=== PATIENT | male | born 1970 | race Caucasian/White ===

== ENCOUNTER 2020-04-21 16:26 | Inpatient (IN) | payer OTHER ==
--- OUTSIDE RECORDS SUMMARY | 2020-04-21 16:32 | XMS ---
:1970 Author Organization [facility] Support Name Relationship Address Phone UE Unavailable Unavailable Unavailable OLENA SIGNIFICANT OTHER - [address] [place] [address] Re-disclosure Warning The records that you are about to access may contain information from federally- assisted alcohol or drug abuse programs. If such information is present, then the following federally mandated warning applies: This information has been disclosed to you from records protected by federal confidentiality rules (42 CFR part 2). The federal rules prohibit you from making any further disclosure of this information unless further disclosure is expressly permitted by the written consent of the person to whom it pertains or as otherwise permitted by 42 CFR part 2. A general authorization for the release of medical or other information is NOT sufficient for this purpose. The Federal rules restrict any use of the information to criminally investigate or prosecute any alcohol or drug abuse patient.The records that you are about to access may contain highly sensitive health information, the redisclosure of which is protected by Article 27-F of the [facility] Public Health law. If you continue you may haveaccess to information: Regarding HIV / AIDS; Provided by facilities licensed or operated by the [facility] Office of Mental Health; or Provided by the [facility] Office for People With Developmental Disabilities. If such information is present, then the following [facility] mandated warning applies: This information has been disclosed to you from confidential records which are protected by state law. State law prohibits you from making any further disclosure of this information without the specific written consent of the person to whom it pertains, or as otherwise permitted by law. Any unauthorized further disclosure in violation of state law may result in a fine or custodial sentence or both. A general authorization for the release of medical or other information is NOT sufficient authorization for further disclosure. Insurance Providers Payer name Policy type Policy ID Covered Covered constitution party's Policy P serene / Coverage constitution party ID relationship to [place] [employer] ormation type [place] BEACON [id number] [facility]
--- NOTE | 2020-04-21 16:49 | BHS.RME ---
Substance Use & Tx History - Substance Use History Alcohol Substance amount: 3 pints whiskey Frequency of use: Daily Substance route: Oral Date of Last Use: 04/18/20 (started age 43) Physical/Psych/Mental Status - Behavior General Behavior: Increased activity (restlessness, agitation) Eye Contact: Normal - Cooperativeness Cooperativeness: Cooperative - Thinking Thought Processes: Tight, Logical, Goal Directed - Physical Health Problems Is patient presently having any pain?: No Does patient presently have any injuries (include location): No Does patient currently have a fever: No Is patient : No CIWA Nausea/Vomitin-Int. Nausea w/Dry Heave Muscle Tremors: 4-Moderate,w/Arms Extend Anxiety: 3 Agitation: 3 Paroxysmal Sweats: 4-Forehead w/Sweat Beads Orientation: 0-Oriented Tacttile Disturbances: 0-None Auditory Disturbances: 0-None Visual Disturbances: 0-None Headache: 0-None Present CIWA-Ar Total Score: 18
[2020-04-21 17:37] VITALS: BMI 19.1
--- NOTE | 2020-04-21 17:44 | HP ---
CIWA Score Nausea/Vomitin-Int. Nausea w/Dry Heave Muscle Tremors: 4-Moderate,w/Arms Extend Anxiety: 3 Agitation: 1-Slight > Activity Paroxysmal Sweats: 4-Forehead w/Sweat Beads Orientation: 0-Oriented Tacttile Disturbances: 0-None Auditory Disturbances: 0-None Visual Disturbances: 0-None Headache: 3-Moderate CIWA-Ar Total Score: 19 - Admission Criteria OASAS Guidelines: Admission for Medically Managed Detox: Requires at least one of the followin. CIWA greater than 12 2. Seizures within the past 24 hours 3. Delirium tremens within the past 24 hours 4. Hallucinations within the past 24 hours 5. Acute intervention needed for co occurring medical disorder 6. Acute intervention needed for co occurring psychiatric disorder 7. Severe withdrawal that cannot be handled at a lower level of care (continued vomiting, continued diarrhea, abnormal vital signs) requiring intravenous medication and/or fluids 8. Patient presents the following: CIWA greater than 12 Admission Criteria Met: Admission criteria met Admitting History and Physical - Admission Chief Complaint: Pt is a 49 yo M presenting for detox from alcohol; "want to fix myself...I don't want to drink anymore." History of Present Illness: Pt is a 49 yo M presenting for detox from alcohol; "want to fix myself...I don't want to drink anymore." This is the pt's first time at [facility]. Pt was at [facility] earlier today for withdrawal symptoms; was given 2 doses of librium and referred to [facility]. Pt reports he tried to "quit alcohol" on his own on Monday and he developed withdrawal symptoms afterwards (pt reports he blacked out and seizure yesterday). Pt has never been to detox before. Pt reports drinking wasn't heavy before but since the COVID19 pandemic he has been home and the anxiety of paying rent and feeling depressed has led him to drink heavily. PMH - HTN (metoprolol), HLD (lipitor), GERD (famotidine) , COPD (emphysema) PSH - none Psych - none Soc/Domiciled - Live in [place] alone Legal - none - Substance Use History Alcohol Substance amount: 3 bottles of whiskey (approx. 1 L each) Frequency of use: Daily Substance route: Oral Date of Last Use: 04/18/20 Pt is former smoker (quite 3 months ago) - Past Medical History Cardiovascular: Yes: HTN, Hyperlipdemia Pulmonary: Yes: COPD Gastrointestinal: Yes: GERD Admission ROS [facility] - Ebola screening Have you traveled outside of the country in the last 21 days: No Have you been sick,other than usual withdrawal symptoms: No Do you have a fever: No - Review of Systems Constitutional: Diaphoresis EENT: reports: Blurred Vision (farsighted with glasses), Throat Pain (throat pain x 3 weeks) Respiratory: reports: Cough (chronic cough from COPD), Shortness of Breath (intermittent SOB with COPD hx) Cardiac: reports: No Symptoms Reported GI: reports: Nausea (dry heaving; vomited this morning), Other (reflux, burning sensation in epigastrium) : reports: No Symptoms Reported Musculoskeletal: reports: Back Pain (chronic lower back pain (herniated disc in lumbar spine, per pt)) Integumentary: reports: No Symptoms Reported Neuro: reports: Headache (moderate headache), Tremors (moderate with arms extended), Weakness (generalized) Endocrine: reports: No Symptoms Reported Hematology: reports: No Symptoms Reported Psychiatric: reports: Agitated (restlesss, moderate), Anxious (moderate), Depressed (sometimes (no SI/HI), no SAs previously) Patient History - Smoking Cessation Smoking history: Former smoker Have you smoked in the past 12 months: Yes Initiated information on smoking cessation: No Admission Physical Exam [facility] - Vital Signs Vital Signs: BP 150/97 HR 85 RR 16 T 98.0 O2 sat 100% - Physical General Appearance: Yes: No Apparent Distress, Nourished, Appropriately Dressed HEENTM: Yes: EOMI, Hearing grossly Normal, Normocephalic, Normal Voice Respiratory: Yes: Lungs Clear, Normal Breath Sounds, No Respiratory Distress, No Accessory Muscle Use Neck: Yes: Supple, Trachea in good position Breast: Yes: Breast Exam Deferred Cardiology: Yes: Regular Rhythm, Regular Rate Abdominal: Yes: Normal Bowel Sounds, Non Tender, Flat, Soft Genitourinary: Yes: Other (deferred) Back: Yes: Normal Inspection Musculoskeletal: Yes: full range of Motion, Other (pt with mild unsteadiness of gait 2/2 to feeling generally week) Extremities: Yes: Normal Inspection, Normal Range of Motion, Non-Tender, Tremors (moderate with outstretched arms) Neurological: Yes: Fully Oriented, Alert, Motor Strength 5/5 Integumentary: Yes: Normal Color, Dry, Warm - Diagnostic (1) Alcohol dependence Current Visit: Yes Status: Acute Qualifiers: Substance use status: in withdrawal Complication of substance-induced condition: uncomplicated Qualified Code(s): F10.230 - Alcohol dependence with withdrawal, uncomplicated (2) HTN (hypertension) Current Visit: Yes Status: Chronic Qualifiers: Hypertension type: unspecified Qualified Code(s): I10 - Essential (primary) hypertension (3) Hyperlipidemia Current Visit: Yes Status: Chronic Qualifiers: Hyperlipidemia type: unspecified Qualified Code(s): E78.5 - Hyperlipidemia, unspecified (4) GERD (gastroesophageal reflux disease) Current Visit: No Status: Chronic Qualifiers: Esophagitis presence: esophagitis presence not specified Qualified Code(s): K21.9 - Gastro-esophageal reflux disease without esophagitis (5) COPD (chronic obstructive pulmonary disease) Current Visit: No Status: Chronic Qualifiers: COPD type: unspecified COPD Qualified Code(s): J44.9 - Chronic obstructive pulmonary disease, unspecified Cleared for Admission S - Detox or Rehab [facility] Level of Care: Medically Managed Detox Regimen/Protocol: Librium Breathalyzer - Breathalyzer Breathalyzer: 0 Urine Drug Screen - Test Device Lot number: [id number] Expiration date: 10/15/21 - Control Is test valid?: Yes - Results Drug screen NEGATIVE: No Urine drug screen results: THC-Marijuana, BZO-Benzodiazepines Inpatient Rehab Admission - Rehab Decision to Admit Inpatient rehab admission?: No
[2020-04-21] MEDS ORDERED: MENTHOL/PHENOL 1 EACH UD MM PRN (18:10)
[2020-04-21] MEDS ORDERED: ACETAMINOPHEN 325 MG TABLET (FP) PO PRN ×2 (18:10)
[2020-04-21] MEDS ORDERED: ONDANSETRON *ODT* 4 MG TABLET SL PRN (18:10)
[2020-04-21] MEDS ORDERED: METHOCARBAMOL 500 MG TABLET PO PRN (18:10)
[2020-04-21] MEDS ORDERED: MAG HYDROX/AL HYDROX/SIMETH 30 ML UNIT-DOSE CUP PO PRN (18:10)
[2020-04-21] MEDS ORDERED: MAGNESIUM HYDROX 2400MG/30ML ORAL SUSPENSION 30 ML CUP PO PRN (18:10)
[2020-04-21] MEDS ORDERED: chlordiazePOXIDE HCL 25 MG CAPSULE PO PRN (18:10)
[2020-04-21] MEDS ORDERED: MAGNESIUM CITRATE 300 ML BOTTLE PO PRN (18:10)
[2020-04-21] MEDS ORDERED: BISMUTH SUBSALICYLATE 524 MG/30 ML UD PO PRN (18:10)
[2020-04-21] MEDS ORDERED: IBUPROFEN 400 MG TABLET (FP) PO PRN (18:10)
--- NOTE | 2020-04-21 18:21 | PN ---
Teaching Attending Note Name of Resident: Cierra Nicole ATTENDING PHYSICIAN STATEMENT I saw and evaluated the patient. I reviewed the resident's note and discussed the case with the resident. I agree with the resident's findings and plan as documented. SUBJECTIVE: 49 y.o. male w/ etoh use referred from [facility] for alcohol detox OBJECTIVE: wnwd , tremulous UE Vital Signs - 24 hr 04/21/20 17:34 Temperature 98.2 F Pulse Rate 85 Respiratory 18 Rate Blood Pressure 150/97 ASSESSMENT AND PLAN: AUD - Librium detox .
--- OUTSIDE RECORDS SUMMARY | 2020-04-21 19:06 | XMS ---
:1970 Author Organization [facility] Support Name Relationship Address Phone UE Unavailable Unavailable Unavailable CHRIST HYATT SIGNIFICANT OTHER - [address] [place] [address] Re-disclosure Warning The records that you are [...] is protected by Article 27-F of the [facility] Public Health law. If you continue you may haveaccess to information: Regarding HIV / AIDS; Provided by facilities licensed or operated by the [facility] Office of Mental Health; or Provided by the [facility] Office for People With Developmental Disabilities. If such information is present, then the following [facility] mandated warning applies: This information [...] law may result in a fine or mcfp sentence or both. A general authorization for the release of medical or other information is NOT sufficient authorization for further disclosure. Insurance Providers Payer name Policy type Policy ID Covered Covered libertarian's Policy P serene / Coverage libertarian ID relationship to [place] Inf ormation type [place] [employer]ACON [id number] [facility]
[2020-04-21] MEDS: chlordiazePOXIDE HCL 25 MG CAPSULE PO SCH ×2 (20:29→22:23)
[2020-04-21] MEDS: ATORVASTATIN CA 20 MG TABLET (FP) PO SCH (22:21)
[2020-04-21] MEDS: hydrOXYzine PAMOATE 25 MG CAPSULE (FP) PO SCH (22:21)
[2020-04-21] MEDS: GABAPENTIN 300 MG CAPSULE PO SCH (22:21)
[2020-04-21] MEDS: MELATONIN 5 MG TABLETS PO SCH (22:21)
[2020-04-21] MEDS: THIAMINE HCL 100 MG TABLET (FP) PO SCH (22:23)
[2020-04-22] MEDS: hydrOXYzine PAMOATE 25 MG CAPSULE (FP) PO SCH ×5 (05:35→22:35)
[2020-04-22] MEDS: chlordiazePOXIDE HCL 25 MG CAPSULE PO SCH ×4 (05:36→22:34)
[2020-04-22] MEDS: PRENATAL VITAMINS W/ FOLIC ACID TABLET (FP) PO SCH (10:35)
[2020-04-22] MEDS: BUDESONIDE/FORMETEROL FUMARATE 160/4.5 mcg INHALER IH SCH ×2 (10:35→22:33)
[2020-04-22] MEDS: metoPROLOL SUCCINATE 25 MG TAB.SR.24H (FP) PO SCH (10:35)
[2020-04-22] MEDS: NICOTINE 7 MG/24 HOURS TOPICAL PATCH TD SCH (10:36)
--- NOTE | 2020-04-22 11:18 | PN ---
S CIWA - CIWA Score Nausea/Vomitin-Mild Nausea/No Vomiting Muscle Tremors: 4-Moderate,w/Arms Extend Anxiety: 3 Agitation: 2 Paroxysmal Sweats: 1-Minimal Palms Moist Orientation: 0-Oriented Tacttile Disturbances: 0-None Auditory Disturbances: 0-None Visual Disturbances: 1-Very Mild Sensitivity Headache: 2-Mild CIWA-Ar Total Score: 14 BHS Progress Note (SOAP) Subjective: 49 years old male was admitted on 04/21/20 for alcohol withdrawal sx management treating with librium detox regiment bmi 19.1 ensure 120 ml po tid with meals long history of bp elevation received first metoprolol dosage today ambulating with wheelchair due to "I shake" too much least tremor today able to walk from bed to bathroom Objective: 04/22/20 11:19 Vital Signs - 24 hr 04/21/20 04/21/20 04/21/20 17:34 19:21 20:03 Temperature 98.2 F 97.7 F Pulse Rate 85 90 Respiratory 18 18 Rate Blood Pressure 150/97 144/84 O2 Sat by Pulse 100 100 Oximetry (%) 04/21/20 04/22/20 04/22/20 21:04 06:31 08:59 Temperature 97.5 F L 96.7 F L 96.9 F L Pulse Rate 80 59 L 78 Respiratory 17 16 18 Rate Blood Pressure 125/85 156/84 138/83 O2 Sat by Pulse 100 100 100 Oximetry (%) 04/22/20 11:20 lab pending Assessment: 04/22/20 11:20 alcohol withdrawal Plan: librium regiment
[2020-04-22 12:56] LABS: ALBUMIN 3.3 g/dl (3.4-5.0); BILIRUBIN,TOTAL 1.4 mg/dL (0.2-1); BLOOD UREA NITROGEN 7.9 mg/dL (7-18); CALCIUM 8.9 mg/dL (8.5-10.1); CREATININE 0.6 mg/dL (0.55-1.3); TOT PROT 6.3 g/dl (6.4-8.2)
[2020-04-22 12:59] LABS: HEMATOCRIT 35.6 % (35.4-49); HEMOGLOBIN 11.3 GM/dL (11.7-16.9); MCH 26.6 pg (25.7-33.7); MCHC 31.8 g/dl (32.0-35.9); MEAN CELL VOLUME 83.8 fl (80-96); MEAN PLT VOLUME 10.5 fl (7.5-11.1); PLATELET COUNT 92 K/MM3 (134-434); RBC 4.25 M/mm3 (4.00-5.60); RDW 14.8 % (11.9-15.9); WHITE BLOOD COUNT 4.7 K/mm3 (4.0-10.0)
[2020-04-22] MEDS: NICOTINE POLACRILEX 2 MG GUM BUC PRN (18:32)
[2020-04-22] MEDS: THIAMINE HCL 100 MG TABLET (FP) PO SCH (22:34)
[2020-04-22] MEDS: ATORVASTATIN CA 20 MG TABLET (FP) PO SCH (22:35)
[2020-04-22] MEDS: GABAPENTIN 300 MG CAPSULE PO SCH (22:35)
[2020-04-22] MEDS: MELATONIN 5 MG TABLETS PO SCH (22:35)
[2020-04-23] MEDS: chlordiazePOXIDE HCL 25 MG CAPSULE PO SCH ×2 (05:42→14:09)
[2020-04-23] MEDS: hydrOXYzine PAMOATE 25 MG CAPSULE (FP) PO SCH ×5 (05:42→22:14)
--- NOTE | 2020-04-23 06:52 | PN ---
[facility] Progress Note Note: I was called by the nurse to evaluate patient who reported to the nurse that he fell twice this morning, once in the bathroom and at the bedside and that he hit the left side of his head and left hand/ shoulder to the floor. He is complaining of pain to the left side of his head and to the left hand / shoulder. He is wheelchair bound and reports that he bilateral leg is weak. He denies loss of consciousness, nausea, vomiting and reports left sided head pain, left hand pain and dizziness. No injury noted on examination. Fall was not witnessed by a staff. Fall protocol #1 initiated. Patient is to be transferred to ER for further evaluation and head CT scan. patient endorsed to Dr. Ortega Vital Signs Temperature 97.6 F 04/23/20 06:18 Pulse Rate 59 L 04/23/20 06:18 Respiratory Rate 18 04/23/20 06:18 Blood Pressure 106/63 04/23/20 06:18 O2 Sat by Pulse Oximetry (%) 96 04/23/20 06:18 Laboratory Last Values WBC 4.7 K/mm3 (4.0-10.0) 04/21/20 07:30 RBC 4.25 M/mm3 (4.00-5.60) 04/21/20 07:30 Hgb 11.3 GM/dL (11.7-16.9) L 04/21/20 07:30 Hct 35.6 % (35.4-49) 04/21/20 07:30 MCV 83.8 fl (80-96) 04/21/20 07:30 MCH 26.6 pg (25.7-33.7) 04/21/20 07:30 MCHC 31.8 g/dl (32.0-35.9) L 04/21/20 07:30 RDW 14.8 % (11.9-15.9) 04/21/20 07:30 Plt Count 92 K/MM3 (134-434) L 04/21/20 07:30 MPV 10.5 fl (7.5-11.1) 04/21/20 07:30 Sodium 140 mmol/L (136-145) 04/21/20 07:30 Potassium 3.0 mmol/L (3.5-5.1) L 04/21/20 07:30 Chloride 101 mmol/L (98-107) 04/21/20 07:30 Carbon Dioxide 32 mmol/L (21-32) 04/21/20 07:30 Anion Gap 7 MMOL/L (8-16) L 04/21/20 07:30 BUN 7.9 mg/dL (7-18) 04/21/20 07:30 Creatinine 0.6 mg/dL (0.55-1.3) 04/21/20 07:30 Est GFR (CKD-EPI)AfAm 134.92 04/21/20 07:30 Est GFR (CKD-EPI)NonAf 116.41 04/21/20 07:30 Random Glucose 85 mg/dL (74-106) 04/21/20 07:30 Calcium 8.9 mg/dL (8.5-10.1) 04/21/20 07:30 Total Bilirubin 1.4 mg/dL (0.2-1) H 04/21/20 07:30 AST 156 U/L (15-37) H 04/21/20 07:30 ALT 134 U/L (13-61) H 04/21/20 07:30 Alkaline Phosphatase 160 U/L (45-117) H 04/21/20 07:30 Total Protein 6.3 g/dl (6.4-8.2) L 04/21/20 07:30 Albumin 3.3 g/dl (3.4-5.0) L 04/21/20 07:30 Syphilis Serology Non-reactive (NONREACTIVE) 04/21/20 07:30 Action: Motrin 400mg tablet oral stat for pain Transfer to ER for evaluation and CT scan of the head
[2020-04-23] MEDS ORDERED: POTASSIUM CHLORIDE ORAL LIQUID 20 MEQ/15 ML PO ONE (08:00)
[2020-04-23] MEDS: BUDESONIDE/FORMETEROL FUMARATE 160/4.5 mcg INHALER IH SCH ×2 (12:31→22:12)
[2020-04-23] MEDS: PRENATAL VITAMINS W/ FOLIC ACID TABLET (FP) PO SCH (12:32)
[2020-04-23] MEDS: LORazepam 1 MG TABLET PO PRN (12:32)
[2020-04-23] MEDS: metoPROLOL SUCCINATE 25 MG TAB.SR.24H (FP) PO SCH (12:32)
[2020-04-23] MEDS: NICOTINE 7 MG/24 HOURS TOPICAL PATCH TD SCH (12:33)
--- NOTE | 2020-04-23 13:21 | PN ---
S CIWA - CIWA Score Nausea/Vomitin-No Nausea/No Vomiting Muscle Tremors: 2 Anxiety: 3 Agitation: 0-Normal Activity Paroxysmal Sweats: 3 Orientation: 0-Oriented Tacttile Disturbances: 0-None Auditory Disturbances: 0-None Visual Disturbances: 0-None Headache: 0-None Present CIWA-Ar Total Score: 8 [facility] Progress Note (SOAP) Subjective: c/o sweats, shakes, and anxiety. Objective: 04/23/20 13:19 Vital Signs 04/23/20 04/23/20 04/23/20 05:42 06:18 07:42 Temperature 97.6 F 97.6 F 97.3 F L Pulse Rate 59 L 59 L 73 Respiratory 18 18 18 Rate Blood Pressure 106/63 106/63 125/68 O2 Sat by Pulse 96 96 98 Oximetry (%) 04/23/20 04/23/20 11:55 12:42 Temperature 97.8 F 98.7 F Pulse Rate 71 93 H Respiratory 18 18 Rate Blood Pressure 151/95 117/78 O2 Sat by Pulse 98 98 Oximetry (%) Laboratory Last Values WBC 4.7 K/mm3 (4.0-10.0) 04/21/20 07:30 RBC 4.25 M/mm3 (4.00-5.60) 04/21/20 07:30 Hgb 11.3 GM/dL (11.7-16.9) L 04/21/20 07:30 Hct 35.6 % (35.4-49) 04/21/20 07:30 MCV 83.8 fl (80-96) 04/21/20 07:30 MCH 26.6 pg (25.7-33.7) 04/21/20 07:30 MCHC 31.8 g/dl (32.0-35.9) L 04/21/20 07:30 RDW 14.8 % (11.9-15.9) 04/21/20 07:30 Plt Count 92 K/MM3 (134-434) L 04/21/20 07:30 MPV 10.5 fl (7.5-11.1) 04/21/20 07:30 Sodium 140 mmol/L (136-145) 04/21/20 07:30 Potassium 3.0 mmol/L (3.5-5.1) L 04/21/20 07:30 Chloride 101 mmol/L (98-107) 04/21/20 07:30 Carbon Dioxide 32 mmol/L (21-32) 04/21/20 07:30 Anion Gap 7 MMOL/L (8-16) L 04/21/20 07:30 BUN 7.9 mg/dL (7-18) 04/21/20 07:30 Creatinine 0.6 mg/dL (0.55-1.3) 04/21/20 07:30 Est GFR (CKD-EPI)AfAm 134.92 04/21/20 07:30 Est GFR (CKD-EPI)NonAf 116.41 04/21/20 07:30 Random Glucose 85 mg/dL (74-106) 04/21/20 07:30 Calcium 8.9 mg/dL (8.5-10.1) 04/21/20 07:30 Total Bilirubin 1.4 mg/dL (0.2-1) H 04/21/20 07:30 AST 156 U/L (15-37) H 04/21/20 07:30 ALT 134 U/L (13-61) H 04/21/20 07:30 Alkaline Phosphatase 160 U/L (45-117) H 04/21/20 07:30 Total Protein 6.3 g/dl (6.4-8.2) L 04/21/20 07:30 Albumin 3.3 g/dl (3.4-5.0) L 04/21/20 07:30 Syphilis Serology Non-reactive (NONREACTIVE) 04/21/20 07:30 Labs noted with elevated AST/ALT and low K+ level. Repeat labs in the ED is AST 121, ALT 126, and K+ 4.7. 04/23/20 13:24 Assessment: Pt was received to [facility] after ER evaluation s/p fall. As per ED notes, "49y M hx of htn, hl, acid reflux, etoh abuse preents sp fall. The pt states his legs started shaking and he fell ofrward on his left side hitting his head. denies any LOC, n/v, headache, dizziness, neck pain, back pain, cp, sob, palpitatons, focla numbness/tingling/weakness. states he currently feels fine and wants to go back to [facility]". Pt denies any LOC, headache, dizziness, palpitation, chest pain, sob, or n/v. As per ED notes, CT of head is Negative and EKG is normal. Pt is AOX3, in no acute respiratory distress. Full ROM, ambulating in the unit without assistance. Noted wheelchair at bedside. Withdrawal symptoms persists. Elevated liver enzymes. Hypokalemia is resolved. Plan: change Librium protocol to Ativan protocol.
[2020-04-23] MEDS ORDERED: LORazepam 2 MG TABLET PO SCH (17:00)
[2020-04-23] MEDS: LORazepam 1 MG TABLET PO SCH ×2 (18:12→23:11)
[2020-04-23] MEDS: GABAPENTIN 300 MG CAPSULE PO SCH (22:14)
[2020-04-23] MEDS: THIAMINE HCL 100 MG TABLET (FP) PO SCH (22:14)
[2020-04-23] MEDS: ATORVASTATIN CA 20 MG TABLET (FP) PO SCH (22:14)
[2020-04-23] MEDS: MELATONIN 5 MG TABLETS PO SCH (22:14)
[2020-04-23] MEDS: NICOTINE POLACRILEX 2 MG GUM BUC PRN (22:40)
[2020-04-24] MEDS ORDERED: chlordiazePOXIDE HCL 10 MG CAPSULE PO PRN
[2020-04-24] MEDS: LORazepam 1 MG TABLET PO PRN (01:57)
[2020-04-24] MEDS ORDERED: chlordiazePOXIDE HCL 10 MG CAPSULE PO SCH (05:00)
[2020-04-24] MEDS: LORazepam 1 MG TABLET PO SCH ×4 (06:03→22:04)
[2020-04-24] MEDS: hydrOXYzine PAMOATE 25 MG CAPSULE (FP) PO SCH ×5 (06:03→22:04)
--- NOTE | 2020-04-24 10:00 | PN ---
S CIWA - CIWA Score Nausea/Vomitin-Mild Nausea/No Vomiting Muscle Tremors: 2 Anxiety: 1-Mildly Anxious Agitation: 0-Normal Activity Paroxysmal Sweats: No Perspiration Orientation: 0-Oriented Tacttile Disturbances: 0-None Auditory Disturbances: 0-None Visual Disturbances: 0-None Headache: 1-Very Mild CIWA-Ar Total Score: 5 S Progress Note (SOAP) Subjective: Pt seen and examined at bedside. Pt reports improving withdrawal symptoms. Also complaining of weakness of legs and unstable gait - "since I started drinking before coming here." Pt was recently evaluated at [facility] ED s/p fall. Objective: Last Vital Signs Temp Pulse Resp BP Pulse Ox 97.9 F 58 L 16 116/68 98 04/24/20 05:40 04/24/20 05:40 04/24/20 05:40 04/24/20 05:40 04/23/20 20:19 Gen - AOx3; well-nourished; well appearing CV - RRR, normal s1/s2 Pulm - CTAB Ext - moving all extremities equally/spontaneously; mild tremor (felt; not seen); unstable gait, wheelchair at bedside. Neuro - 5/5 strength UE; 4/5 strength LE Laboratory 04/21/20 04/21/20 04/21/20 07:30 07:30 07:30 WBC 4.7 K/mm3 K/mm3 (4.0-10.0) RBC 4.25 M/mm3 M/mm3 (4.00-5.60) Hgb 11.3 GM/dL L GM/dL (11.7-16.9) Hct 35.6 % % (35.4-49) MCV 83.8 fl fl (80-96) MCH 26.6 pg pg (25.7-33.7) MCHC 31.8 g/dl L g/dl (32.0-35.9) RDW 14.8 % % (11.9-15.9) Plt Count 92 K/MM3 L K/MM3 (134-434) MPV 10.5 fl fl (7.5-11.1) Sodium 140 mmol/L mmol/L (136-145) Potassium 3.0 mmol/L L mmol/L (3.5-5.1) Chloride 101 mmol/L mmol/L (98-107) Carbon Dioxide 32 mmol/L mmol/L (21-32) Anion Gap 7 MMOL/L L MMOL/L (8-16) BUN 7.9 mg/dL mg/dL (7-18) Creatinine 0.6 mg/dL mg/dL (0.55-1.3) Est GFR (CKD-EPI)AfAm 134.92 Est GFR (CKD-EPI)NonAf 116.41 Random Glucose 85 mg/dL mg/dL (74-106) Calcium 8.9 mg/dL mg/dL (8.5-10.1) Total Bilirubin 1.4 mg/dL H mg/dL (0.2-1) AST 156 U/L H U/L (15-37) ALT 134 U/L H U/L (13-61) Alkaline Phosphatase 160 U/L H U/L (45-117) Total Protein 6.3 g/dl L g/dl (6.4-8.2) Albumin 3.3 g/dl L g/dl (3.4-5.0) Syphilis Serology Non-reactive (NONREACTIVE) COVID-19 (ESTEPH[place]IA) 04/21/20 19:15 WBC RBC Hgb Hct MCV MCH MCHC RDW Plt Count MPV Sodium Potassium Chloride Carbon Dioxide Anion Gap BUN Creatinine Est GFR (CKD-EPI)AfAm Est GFR (CKD-EPI)NonAf Random Glucose Calcium Total Bilirubin AST ALT Alkaline Phosphatase Total Protein Albumin Syphilis Serology COVID-19 ([place]PH[place]IA) Not detected (Not Detected) Assessment: Pt has improving withdrawal symptoms. Also with weakness of b/l lower extremities. 04/24/20 10:12 Plan: Continue with ativan protocol. Fall risk/fall precautions.
[2020-04-24] MEDS: PRENATAL VITAMINS W/ FOLIC ACID TABLET (FP) PO SCH (10:27)
[2020-04-24] MEDS: BUDESONIDE/FORMETEROL FUMARATE 160/4.5 mcg INHALER IH SCH ×2 (10:27→22:04)
[2020-04-24] MEDS: NICOTINE 7 MG/24 HOURS TOPICAL PATCH TD SCH (10:35)
[2020-04-24] MEDS: metoPROLOL SUCCINATE 25 MG TAB.SR.24H (FP) PO SCH (10:35)
[2020-04-24] MEDS: MELATONIN 5 MG TABLETS PO SCH (22:04)
[2020-04-24] MEDS: ATORVASTATIN CA 20 MG TABLET (FP) PO SCH (22:04)
[2020-04-24] MEDS: GABAPENTIN 300 MG CAPSULE PO SCH (22:04)
[2020-04-24] MEDS: THIAMINE HCL 100 MG TABLET (FP) PO SCH (22:05)
[2020-04-25] MEDS ORDERED: chlordiazePOXIDE HCL 10 MG CAPSULE PO SCH (05:00)
[2020-04-25] MEDS: LORazepam 0.5 MG TABLET PO SCH ×4 (06:05→22:16)
[2020-04-25] MEDS: hydrOXYzine PAMOATE 25 MG CAPSULE (FP) PO SCH ×5 (06:05→22:16)
[2020-04-25] MEDS: PRENATAL VITAMINS W/ FOLIC ACID TABLET (FP) PO SCH (10:06)
[2020-04-25] MEDS: BUDESONIDE/FORMETEROL FUMARATE 160/4.5 mcg INHALER IH SCH ×2 (10:06→22:17)
[2020-04-25] MEDS: metoPROLOL SUCCINATE 25 MG TAB.SR.24H (FP) PO SCH (10:06)
[2020-04-25] MEDS: NICOTINE 7 MG/24 HOURS TOPICAL PATCH TD SCH (10:07)
--- NOTE | 2020-04-25 12:05 | PN ---
S CIWA - CIWA Score Nausea/Vomitin-No Nausea/No Vomiting Muscle Tremors: None Anxiety: 2 Agitation: 0-Normal Activity Paroxysmal Sweats: 2 Orientation: 0-Oriented Tacttile Disturbances: 0-None Auditory Disturbances: 0-None Visual Disturbances: 0-None Headache: 0-None Present CIWA-Ar Total Score: 4 BHS Progress Note (SOAP) Subjective: c/o mild withdrawal symptoms. Objective: 04/25/20 12:01 Vital Signs 04/25/20 04/25/20 06:30 08:39 Temperature 97.3 F L 98.8 F Pulse Rate 61 99 H Respiratory 18 18 Rate Blood Pressure 129/83 124/79 O2 Sat by Pulse 97 99 Oximetry (%) Assessment: 04/25/20 12:01 AOX3, in no acute respiratory distress. Full ROM, ambulating in the unit. Mild Withdrawal symptoms. For d/c tomorrow. Plan: continue detox. D/C in AM.
[2020-04-25] MEDS: NICOTINE POLACRILEX 2 MG GUM BUC PRN ×2 (13:32→22:19)
[2020-04-25] MEDS: GABAPENTIN 300 MG CAPSULE PO SCH (22:16)
[2020-04-25] MEDS: ATORVASTATIN CA 20 MG TABLET (FP) PO SCH (22:16)
[2020-04-25] MEDS: MELATONIN 5 MG TABLETS PO SCH (22:16)
[2020-04-25] MEDS: THIAMINE HCL 100 MG TABLET (FP) PO SCH (22:16)
[2020-04-26] MEDS ORDERED: LORazepam 0.5 MG TABLET PO PRN
[2020-04-26] MEDS ORDERED: LORazepam 0.5 MG TABLET PO ONE (05:00)
[2020-04-26] MEDS ORDERED: chlordiazePOXIDE HCL 10 MG CAPSULE PO ONE (05:00)
[2020-04-26] MEDS: hydrOXYzine PAMOATE 25 MG CAPSULE (FP) PO SCH ×2 (05:44→10:25)
[2020-04-26 09:04] VITALS: BP 114/76; PULSE 64; TEMP 96.9
[2020-04-26] MEDS: metoPROLOL SUCCINATE 25 MG TAB.SR.24H (FP) PO SCH (10:25)
[2020-04-26] MEDS: PRENATAL VITAMINS W/ FOLIC ACID TABLET (FP) PO SCH (10:25)
[2020-04-26] MEDS: NICOTINE 7 MG/24 HOURS TOPICAL PATCH TD SCH (10:25)
[2020-04-26] MEDS: BUDESONIDE/FORMETEROL FUMARATE 160/4.5 mcg INHALER IH SCH (10:25)
--- NOTE | 2020-04-26 11:45 | DS ---
[facility] Detox Discharge Summary Admission Date: 04/21/20 Discharge Date: 04/26/20 - History Present History: Alcohol Dependence Additional Comments: 49 years old male was admitted on 04/21/20 for alcohol withdrawal sx management treated with ativan detox regiment fell on 04/23/20 x 2 sent to ER negative ct of head return to [facility] discontinue motrin hold neurontin [place] has completed ativan regiment and is tolerated well General Appearance: Yes: No Apparent Distress, Nourished, Appropriately Dressed HEENTM: Yes: EOMI, Hearing grossly Normal, Normocephalic, Normal Voice Respiratory: Yes: Lungs Clear, Normal Breath Sounds, No Respiratory Distress, No Accessory Muscle Use Neck: Yes: Supple, Trachea in good position Breast: Yes: Breast Exam Deferred Cardiology: Yes: Regular Rhythm, Regular Rate Abdominal: Yes: Normal Bowel Sounds, Non Tender, Flat, Soft Genitourinary: Yes: Other (deferred) Back: Yes: Normal Inspection Musculoskeletal: Yes: full range of Motion, Other (pt with mild unsteadiness of gait 2/2 to feeling generally week) Extremities: Yes: Normal Inspection, Normal Range of Motion, Non-Tender, less Tremors (mild with outstretched arms) Neurological: Yes: Fully Oriented, Alert, Motor Strength 5/5 Integumentary: Yes: Normal Color, Dry, Warm Pertinent Past History: time for discharge 58 minutes transferred order set from detox to rehab - Physical Exam Results Vital Signs: Vital Signs Temperature 96.9 F L 04/26/20 08:52 Pulse Rate 64 04/26/20 08:52 Respiratory Rate 18 04/26/20 08:52 Blood Pressure 114/76 04/26/20 08:52 O2 Sat by Pulse Oximetry (%) 98 04/26/20 08:52 Pertinent Admission Physical Exam Findings: alcohol withdrawal Vital Signs - 24 hr 04/25/20 04/25/20 04/25/20 12:52 16:37 20:16 Temperature 97.7 F 97.3 F L 97.8 F Pulse Rate 50 L 79 73 Respiratory 18 18 16 Rate Blood Pressure 120/81 118/78 121/74 O2 Sat by Pulse 99 100 Oximetry (%) 04/26/20 04/26/20 06:19 08:52 Temperature 97.5 F L 96.9 F L Pulse Rate 90 64 Respiratory 16 18 Rate Blood Pressure 133/81 114/76 O2 Sat by Pulse 98 98 Oximetry (%) Laboratory Tests 04/21/20 04/21/20 04/21/20 07:30 07:30 07:30 WBC 4.7 RBC 4.25 Hgb 11.3 L Hct 35.6 MCV 83.8 MCH 26.6 MCHC 31.8 L RDW 14.8 Plt Count 92 L MPV 10.5 Sodium 140 Potassium 3.0 L Chloride 101 Carbon Dioxide 32 Anion Gap 7 L BUN 7.9 Creatinine 0.6 Est GFR (CKD-EPI)AfAm 134.92 Est GFR (CKD-EPI)NonAf 116.41 Random Glucose 85 Calcium 8.9 Total Bilirubin 1.4 H AST 156 H ALT 134 H Alkaline Phosphatase 160 H Total Protein 6.3 L Albumin 3.3 L Syphilis Serology Non-reactive COVID-19 ([place]) 04/21/20 19:15 WBC RBC Hgb Hct MCV MCH MCHC RDW Plt Count MPV Sodium Potassium Chloride Carbon Dioxide Anion Gap BUN Creatinine Est GFR (CKD-EPI)AfAm Est GFR (CKD-EPI)NonAf Random Glucose Calcium Total Bilirubin AST ALT Alkaline Phosphatase Total Protein Albumin Syphilis Serology COVID-19 ([place]) Not detected low K+ received repeat K+ and ast in [facility] - Treatment Hospital Course: Detox Protocol Followed, Detoxed Safely, Responded well, Discharged Condition Good, Rehab Referral Accepted Patient has Accepted a Rehab Referral to: [facility] - Medication Discharge Medications: Ambulatory Orders Atorvastatin Ca [Lipitor] 20 mg PO HS 30 Days #30 tablet 04/24/20 Budesonide/Formoterol Fumarate [Budesonide-Formoterol 160-4.5] 1 puff IH DAILY #1 inhaler 04/24/20 Gabapentin 300 mg PO HS 30 Days #30 cap 04/24/20 Metoprolol Succinate 25 mg PO DAILY 30 Days #30 tab.sr 04/24/20 - Diagnosis (1) Alcohol dependence Status: Acute Qualifiers: Substance use status: in withdrawal Complication of substance-induced condition: uncomplicated Qualified Code(s): F10.230 - Alcohol dependence with withdrawal, uncomplicated (2) COPD (chronic obstructive pulmonary disease) Status: Chronic Qualifiers: COPD type: emphysema Emphysema type: panlobular Qualified Code(s): J43.1 - Panlobular emphysema (3) GERD (gastroesophageal reflux disease) Status: Chronic Qualifiers: Esophagitis presence: without esophagitis Qualified Code(s): K21.9 - Gastro-esophageal reflux disease without esophagitis (4) HTN (hypertension) Status: Chronic Qualifiers: Hypertension type: essential hypertension Qualified Code(s): I10 - Essential (primary) hypertension (5) Hyperlipidemia Status: Chronic Qualifiers: Hyperlipidemia type: pure hypercholesterolemia Qualified Code(s): E78.00 - Pure hypercholesterolemia, unspecified; E78.0 - Pure hypercholesterolemia (6) Substance induced mood disorder Status: Suspected - AMA Did Patient Leave Against Medical Advice: No CIWA Score - CIWA Score Nausea/Vomitin-No Nausea/No Vomiting Muscle Tremors: None Anxiety: 1-Mildly Anxious Agitation: 0-Normal Activity Paroxysmal Sweats: 1-Minimal Palms Moist Orientation: 0-Oriented Tacttile Disturbances: 0-None Auditory Disturbances: 0-None Visual Disturbances: 0-None Headache: 0-None Present CIWA-Ar Total Score: 2
== END 2020-04-26 11:13 | disposition other institution (70) | DRG 775 ==
LOC: YASAS 16:26 → Y3N 19:02
PROVIDERS: ADMIT Allergy & Immunology; ATTEND Allergy & Immunology
PROC: HZ2ZZZZ Detoxification Services for Substance Abuse Treatment (ICD-10-PCS; principal; 2020-04-21)
DX: F10.230 Alcohol dependence with withdrawal, uncomplicated (principal); F17.211 Nicotine dependence, cigarettes, in remission; F19.24 Other psychoactive substance dependence with psychoactive substance-induced mood disorder; E78.00 Pure hypercholesterolemia, unspecified; E78.5 Hyperlipidemia, unspecified; I10 Essential (primary) hypertension; J44.9 Chronic obstructive pulmonary disease, unspecified; K21.9 Gastro-esophageal reflux disease without esophagitis; E87.6 Hypokalemia; R74.8 Abnormal levels of other serum enzymes; M62.81 Muscle weakness (generalized); R26.81 Unsteadiness on feet; R29.6 Repeated falls; Z99.3 Dependence on wheelchair; S09.90XA Unspecified injury of head, initial encounter; S49.92XA Unspecified injury of left shoulder and upper arm, initial encounter; W18.39XA Other fall on same level, initial encounter; Y92.231 Patient bathroom in hospital as the place of occurrence of the external cause; Y93.89 Activity, other specified; Y99.8 Other external cause status
CPT/HCPCS: 36415; 80053; 85027; 86780; C9803; U0003

== ENCOUNTER 2020-04-23 08:09 | Emergency (ER) | payer OTHER ==
--- NOTE | 2020-04-23 08:26 | PDOC ---
History of Present Illness - General Chief Complaint: Injury Stated Complaint: FALL Time Seen by Provider: 04/23/20 08:26 - History of Present Illness Initial Comments: 49 YOM h/o h[facility]. Patient reports [facility] when his legs gave out beneath him, he struck his left side including his head, shoulder, and arm. He reports pain in these areas. He mentions that since he has quit alcohol 3-4 days ago and begun withdrawing he has experienced weakness and lack of coordination in bilateral legs. He otherwise denies CP, SOB, N/V/D, fever, chills, recent sick contacts or recent travel. Full Review of Systems Constitutional: + Weight Change, No Fever, No Chills Cardiovascular: No Chest Pain, No SOB Respiratory: No Cough, No Sputum Gastrointestinal: No Nausea, No Vomiting, No Diarrhea Genitourinary: No Dysuria, No Urinary Frequency, No Hematuria, No Urinary Incontinence, No Urgency Neuro: + Weakness, No Numbness, + Paresthesias, + Coordination Changes, + Recent Falls 04/23/20 08:47 Past History - Medical History Allergies/Adverse Reactions: Allergies Allergy/AdvReac Type Severity Reaction Status Date / Time No Known Allergies Allergy Verified 04/23/20 08:59 Home Medications: Ambulatory Orders Atorvastatin Ca [Lipitor] 20 mg PO HS 30 Days #30 tablet 04/24/20 Budesonide/Formoterol Fumarate [Budesonide-Formoterol 160-4.5] 1 puff IH DAILY #1 inhaler 04/24/20 Gabapentin 300 mg PO HS 30 Days #30 cap 04/24/20 Metoprolol Succinate 25 mg PO DAILY 30 Days #30 tab.sr 04/24/20 Asthma: No Cardiac Disorders: No COPD: No Diabetes: No GI Disorders: No Disorders: No HTN: No Kidney Stones: No Seizures: No - Surgical History Abdominal Surgery: No Appendectomy: No Cardiac Surgery: No Cholecystectomy: No Lung Surgery: No Neurologic Surgery: No Orthopedic Surgery: No - Reproductive History Testicular Surgery: No - Psycho-Social/Smoking History Smoking History: Former smoker Have you smoked in the past 12 months: Yes *Physical Exam - Physical Exam General Appearance: Yes: Nourished, Appropriately Dressed HEENT: positive: EOMI, CRISTIAN, Normal ENT Inspection, Normal Voice Neck: positive: Trachea midline, Normal Thyroid Respiratory/Chest: positive: Lungs Clear, Normal Breath Sounds Cardiovascular: positive: Regular Rhythm, Regular Rate, S1, S2 Gastrointestinal/Abdominal: positive: Normal Bowel Sounds, Flat, Soft Musculoskeletal: positive: Normal Inspection Extremity: positive: Normal Capillary Refill, Normal Inspection Integumentary: positive: Normal Color, Dry, Warm Neurologic: positive: director supplier quality II-XII NML intact, Fully Oriented, Alert, Normal Mood/Affect (upper extremity strength is 5/5, 4/5 strength in bilateral legs), Normal Response ED Treatment Course - LABORATORY CBC & Chemistry Diagram: 04/23/20 09:03 04/23/20 09:03 Medical Decision Making - Medical Decision Making 49 YOM h/o htn [facility] - vitals wnl - exam reveals 4/5 strength in legs bilat - CBC, CMP, ekg, ct head, ct neck reassess: - labs reveal transaminitis, otherwise unremarkable - CT head and neck wnl - [facility] - Discharge Information Problems reviewed: Yes Clinical Impression/Diagnosis: Fall Condition: Good Disposition: HOME - Admission No - Follow up/Referral - Patient Discharge Instructions Patient Printed Discharge Instructions: How to Prevent Falls Additional Instructions: You were seen in the ER for a fall in which you hit your head. You received labs and imaging all of which were unremarkable. You were considered medically stable and safe to return home. Please follow up with your primary care doctor regarding your visit to the ER. When you return home please be careful while ambulating. If you need you can use a walker or a cane to support you. Additionally it is ok to ask others for help while moving about. Do not get up and walk if you are feeling dizzy or lightheaded. Call 911 or have someone else call if: You have fallen and are unconscious. You have fallen and cannot move part of your body. Contact your healthcare provider if: You have fallen and have pain or a headache. You have questions or concerns about your condition or care. Fall prevention tips: Stand or sit up slowly. This may help you keep your balance and prevent falls. Use assistive devices as directed. Your healthcare provider may suggest that you use a cane or walker to help you keep your balance. You may need to have grab bars put in your bathroom near the toilet or in the shower. Wear shoes that fit well and have soles that cloth picker. Wear shoes both inside and outside. Use slippers with good cloth picker. Do not wear shoes with high heels. Wear a personal alarm. This is a device that allows you to call 911 if you fall and need help. Ask your healthcare provider for more information. Stay active. Exercise can help strengthen your muscles and improve your balance. Your healthcare provider may recommend water aerobics or walking. He or she may also recommend physical therapy to improve your coordination. Never start an exercise program without talking to your healthcare provider first. Manage your medical conditions. Keep all appointments with your healthcare providers. Visit your eye doctor as directed. Home safety tips: Add items to prevent falls in the bathroom. Put nonslip strips on your bath or shower floor to prevent you from slipping. Use a bath mat if you do not have carpet in the bathroom. This will prevent you from falling when you step out of the bath or shower. Use a shower seat so you do not need to stand while you shower. Sit on the toilet or a chair in your bathroom to dry yourself and put on clothing. This will prevent you from losing your balance from drying or dressing yourself while you are standing. Keep paths clear. Remove books, shoes, and other objects from walkways and stairs. Place cords for telephones and lamps out of the way so that you do not need to walk over them. Tape them down if you cannot move them. Remove small rugs. If you cannot remove a rug, secure it with double-sided tape. This will prevent you from tripping. Install bright lights in your home. Use night lights to help light paths to the bathroom or kitchen. Always turn on the light before you start walking. Keep items you use often on shelves within reach. Do not use a step stool to help you reach an item. [place] or place reflective tape on the edges of your stairs. This will help you see the stairs better. - Post Discharge Activity
[2020-04-23 08:34] VITALS: BP 127/78; PULSE 60; TEMP 97.8; BMI 18.6
--- OUTSIDE RECORDS SUMMARY | 2020-04-23 08:38 | XMS ---
:1970 Author Organization [facility] Support Name Relationship Address Phone UE Unavailable Unavailable Unavailable OLENA SIGNIFICANT OTHER - [address] [place] [address] Re-disclosure Warning The records that you are [...] is protected by Article 27-F of the [facility] Public Health law. If you continue you may haveaccess to information: Regarding HIV / AIDS; Provided by facilities licensed or operated by the [facility] Office of Mental Health; or Provided by the [facility] Office for People With Developmental Disabilities. If such information is present, then the following [facility] mandated warning applies: This information has been [...] law may result in a fine or usp sentence or both. A general authorization for the release of medical or other information is NOT sufficient authorization for further disclosure. Insurance Providers Payer name Policy type Policy ID Covered Covered libertarian's Policy P serene / Coverage libertarian ID relationship to [employer] type prescott BEAC[employer] [id number] [employer] [id number] SP [id number] [employer] Results ID Date Data Source [id number] 04/21/2020 12:00:00 AM EDT [place] Name Value Range Interpretation Code Description Data Nichole rce(s) Supporting Document(s ) SARS-CoV-2 [place] (COVID-19) This lab was ordered by [facility] and reported by [employer]. ID Date Data Source [id number] 04/03/2020 11:59:00 AM EDT [place] Name Value Range Interpretation Code Description Data Nichole rce(s) Supporting Document(s ) SARS-CoV-2 [place] RNA Resp Ql ESTEPHANIA+probe This lab was ordered by [facility] and reported by [facility]. ID Date Data Source [id number] 03/17/2020 11:25:00 PM EDT [place] Name Value Range Interpretation Code Description Data Nichole rce(s) Supporting Document(s ) SARS-CoV-2 [place] RNA Resp Ql [place]ANIA+probe This lab was ordered by [facility] and reported by [facility]. ID Date Data Source [id number] 03/13/2020 12:00:00 AM EDT [facility] Name Value Range Interpretation Code Description Data Nichole rce(s) Supporting Document(s ) SARS-COV-2 [facility] RESP Diagnostics QL ESTEPHANIA+PROBE This lab was ordered by HELIO HERNANDEZ MD an d reported by [employer]. ID Date Data Source [id number] 03/09/2020 02:27:00 PM EDT [facility] Name Value Range Interpretation Code Description Data Nichole rce(s) Supporting Document(s ) SARS-COV-2 [facility]P Diagnostics QL ESTEPHANIA+PROBE This lab was ordered by HELIO HERNANDEZ MD an d reported by [employer]. ID Date Data Source [id number] 12/29/2019 06:14:00 AM EDT [facility] Name Value Range Interpretation Code Description Data Nichole rce(s) Supporting Document(s ) SARS-CoV-2 [facility] RNA Resp Ql EST[place]ANIA+probe This lab was ordered by [facility] and reported by [facility]. Procedure
--- NOTE | 2020-04-23 08:49 | PDOC ---
Attending Attestation - Resident Resident Name: Sergio Neri - ED Attending Attestation I have performed the following: I have examined & evaluated the patient, The case was reviewed & discussed with the resident, I agree w/resident's findings & plan, Exceptions are as noted - HPI HPI: 04/23/20 08:47 49y M hx of htn, hl, acid reflux, etoh abuse preents sp fall. The pt states his legs started shaking and he fell ofrward on his left side hitting his head. denies any LOC, n/v, headache, dizziness, neck pain, back pain, cp, sob, palpitatons, focla numbness/tingling/weakness. states he currently feels fine and [facility] to [facility]. - Physicial Exam PE: 04/23/20 08:49 GENERAL: The patient is awake, alert, and fully oriented, Nontoxic - in no acute distress. HEAD: Normocephalic, atraumatic. EYES: extraocular movements intact, sclera anicteric, conjunctiva clear. LUNGS: Breath sounds equal, clear to auscultation bilaterally. No wheezes, no rhonchi, no rales. HEART: Regular rate and rhythm, normal S1 and S2 without murmur, rub or gallop. ABDOMEN: Soft, nontender, No guarding, no rebound. No CVA tenderness Back: No midline tenderness to the cervical, thoracic or lumbar spine Musculoskelatal: FROM of b/l shoulders, elbows, wrist. FROM of hips, knees, ankles - No signs of ecchymosis, erythema, or crepitus noted on palpation extremities, chest wall, clavicals, ribs, back. NEURO: movin gall 4 ext spontaneously and symemtrically. sensation intact and symmetric b/l - Medical Decision Making 04/23/20 08:49 will ck his electrolytes was noted to be hypokalemic yesterday ekg to screen fo arrythmia will obtain CT head to r/o bleed if neg will [facility] 04/23/[facility] 10:11 ct head negative awaiting for repeat K anticipate dc back t[facility] Heart Score/ECG Review - ECG Impressions Comment:: 04/23/20 09:13 Twelve-lead EKG was performed and reviewed by me. There is normal sinus rhythm with a normal rate. Rate of 61 The axis is normal. The intervals are normal. There is normal R wave progression There are no ST or T wave abnormalities. Impression: Normal twelve-lead EKG
[2020-04-23 09:43] LABS: BASO % 1.1 % (0-2.0); EOS % 3.2 % (0-4.5); HEMATOCRIT 34.9 % (35.4-49); HEMOGLOBIN 11.3 GM/dL (11.7-16.9); LYMPH % 23.5 % (8-40); MCH 26.7 pg (25.7-33.7); MCHC 32.2 g/dl (32.0-35.9); MEAN CELL VOLUME 82.7 fl (80-96); MEAN PLT VOLUME 10.5 fl (7.5-11.1); NEUT % 62.2 % (42.8-82.8); PLATELET COUNT 98 K/MM3 (134-434); RBC 4.22 M/mm3 (4.00-5.60); RDW 14.5 % (11.9-15.9); WHITE BLOOD COUNT 4.2 K/mm3 (4.0-10.0)
[2020-04-23 10:20] LABS: ALBUMIN 3.4 g/dl (3.4-5.0); BILIRUBIN,TOTAL 0.8 mg/dL (0.2-1); CREATININE 0.5 mg/dL (0.55-1.3); POTASSIUM 4.7 mmol/L (3.5-5.1); TOT PROT 6.4 g/dl (6.4-8.2)
--- NOTE | 2020-04-23 13:34 | EKG ---
Test Reason : Blood Pressure : / mmHG Vent. Rate : 061 BPM Atrial Rate : 061 BPM P-R Int : 146 ms QRS Dur : 080 ms QT Int : 454 ms P-R-T Axes : 058 012 027 degrees QTc Int : 457 ms NORMAL SINUS RHYTHM NORMAL ECG NO PREVIOUS ECGS AVAILABLE Confirmed by MICHAEL BRADLEY MD ([id number]) on 04/23/2020 1:34:10 PM Referred By: Confirmed By:MICHAEL BRADLEY MD
== END 2020-04-23 11:40 | disposition home or self-care (01) ==
LOC: JER 08:09
DX: S09.90XA Unspecified injury of head, initial encounter (principal); M25.512 Pain in left shoulder; M79.602 Pain in left arm
CPT/HCPCS: 36415; 70450-TC; 72125-TC; 80053; 85025; 93005; 93010; 99285-25

== ENCOUNTER 2020-12-04 14:39 | Inpatient (IN) | payer OTHER ==
[2020-12-04 15:29] VITALS: BMI 17.6
[2020-12-04] MEDS ORDERED: ALBUTEROL SO4 HFA INHALER IH PRN (16:18)
[2020-12-04] MEDS ORDERED: MAG HYDROX/AL HYDROX/SIMETH 30 ML UNIT-DOSE CUP PO PRN (16:19)
[2020-12-04] MEDS ORDERED: BISMUTH SUBSALICYLATE 524 MG/30 ML PO PRN (16:19)
[2020-12-04] MEDS ORDERED: MENTHOL/PHENOL 1 EACH UD MM PRN (16:19)
[2020-12-04] MEDS ORDERED: LORazepam 1 MG TABLET PO PRN (16:19)
[2020-12-04] MEDS ORDERED: ONDANSETRON *ODT* 4 MG TABLET SL PRN (16:19)
[2020-12-04] MEDS ORDERED: ACETAMINOPHEN 325 MG TABLET (FP) PO PRN ×2 (16:19)
[2020-12-04] MEDS ORDERED: MAGNESIUM CITRATE 300 ML BOTTLE PO PRN (16:19)
[2020-12-04] MEDS ORDERED: NICOTINE POLACRILEX 2 MG GUM BUC PRN (16:19)
[2020-12-04] MEDS ORDERED: LORazepam 2 MG TABLET PO ONE (16:19)
[2020-12-04] MEDS ORDERED: MAGNESIUM HYDROX 2400MG/30ML ORAL SUSPENSION 30 ML CUP PO PRN (16:19)
[2020-12-04] MEDS ORDERED: IBUPROFEN 400 MG TABLET (FP) PO PRN (16:19)
[2020-12-04] MEDS: LORazepam 2 MG TABLET PO SCH ×2 (18:34→22:38)
[2020-12-04] MEDS: THIAMINE HCL 100 MG TABLET (FP) PO SCH (22:37)
[2020-12-04] MEDS: ATORVASTATIN CA 20 MG TABLET (FP) PO SCH (22:37)
[2020-12-04] MEDS: GABAPENTIN 300 MG CAPSULE PO SCH (22:37)
[2020-12-04] MEDS: MELATONIN 5 MG TABLETS PO SCH (22:37)
[2020-12-05] MEDS: METHOCARBAMOL 500 MG TABLET PO PRN (01:25)
[2020-12-05] MEDS: LORazepam 2 MG TABLET PO SCH ×4 (06:26→22:16)
[2020-12-05 10:24] LABS: CALCIUM 8.8 mg/dL (8.5-10.1)
[2020-12-05 10:25] LABS: ALBUMIN 3.7 g/dl (3.4-5.0); BLOOD UREA NITROGEN 8.4 mg/dL (7-18)
[2020-12-05 10:26] LABS: HEMATOCRIT 30.6 % (35.4-49); HEMOGLOBIN 10.1 GM/dL (11.7-16.9); MCH 27.6 pg (25.7-33.7); MEAN CELL VOLUME 83.5 fl (80-96); MEAN PLT VOLUME 10.5 fl (7.5-11.1); PLATELET COUNT 49 K/MM3 (134-434); RBC 3.67 M/mm3 (4.00-5.60); RDW 15.9 % (11.9-15.9); WHITE BLOOD COUNT 6.8 K/mm3 (4.0-10.0)
[2020-12-05 10:28] LABS: CREATININE 0.6 mg/dL (0.55-1.3)
[2020-12-05 10:30] LABS: BILIRUBIN,TOTAL 1.8 mg/dL (0.2-1); TOT PROT 6.8 g/dl (6.4-8.2)
[2020-12-05] MEDS: metoPROLOL SUCCINATE 25 MG TAB.SR.24H (FP) PO SCH (11:12)
[2020-12-05] MEDS: PRENATAL VITAMINS W/ FOLIC ACID TABLET (FP) PO SCH (11:15)
[2020-12-05] MEDS: BUDESONIDE/FORMETEROL FUMARATE 160/4.5 mcg INHALER IH SCH (11:20)
[2020-12-05] MEDS: ATORVASTATIN CA 20 MG TABLET (FP) PO SCH (22:16)
[2020-12-05] MEDS: GABAPENTIN 300 MG CAPSULE PO SCH (22:16)
[2020-12-05] MEDS: THIAMINE HCL 100 MG TABLET (FP) PO SCH (22:16)
[2020-12-05] MEDS: MELATONIN 5 MG TABLETS PO SCH (22:16)
[2020-12-06 06:48] VITALS: TEMP 97.1
[2020-12-06] MEDS: LORazepam 1 MG TABLET PO SCH ×2 (08:39→10:28)
[2020-12-06] MEDS: PRENATAL VITAMINS W/ FOLIC ACID TABLET (FP) PO SCH (10:28)
[2020-12-06] MEDS: BUDESONIDE/FORMETEROL FUMARATE 160/4.5 mcg INHALER IH SCH (10:28)
[2020-12-06] MEDS: METHOCARBAMOL 500 MG TABLET PO PRN (10:30)
[2020-12-06] MEDS: metoPROLOL SUCCINATE 25 MG TAB.SR.24H (FP) PO SCH (10:34)
[2020-12-06 13:48] VITALS: BP 141/100; PULSE 102
[2020-12-07] MEDS ORDERED: LORazepam 0.5 MG TABLET PO PRN
[2020-12-07] MEDS ORDERED: LORazepam 0.5 MG TABLET PO SCH (05:00)
[2020-12-08] MEDS ORDERED: LORazepam 0.5 MG TABLET PO ONE (05:00)
== END 2020-12-06 13:30 | disposition left against medical advice (07) | DRG 770 ==
LOC: YASAS 14:39 → Y6N 15:52
PROVIDERS: ADMIT Allergy & Immunology; ATTEND Allergy & Immunology
PROC: HZ2ZZZZ Detoxification Services for Substance Abuse Treatment (ICD-10-PCS; principal; 2020-12-04)
DX: F10.230 Alcohol dependence with withdrawal, uncomplicated (principal); F19.24 Other psychoactive substance dependence with psychoactive substance-induced mood disorder; F41.9 Anxiety disorder, unspecified; F32.9 Major depressive disorder, single episode, unspecified; F43.10 Post-traumatic stress disorder, unspecified; E78.5 Hyperlipidemia, unspecified; D69.6 Thrombocytopenia, unspecified; D64.9 Anemia, unspecified; E80.6 Other disorders of bilirubin metabolism; I25.10 Atherosclerotic heart disease of native coronary artery without angina pectoris; I10 Essential (primary) hypertension; Z95.5 Presence of coronary angioplasty implant and graft; I25.2 Old myocardial infarction; J43.1 Panlobular emphysema; K21.9 Gastro-esophageal reflux disease without esophagitis; R63.4 Abnormal weight loss; Z68.1 Body mass index [BMI] 19.9 or less, adult; Z87.891 Personal history of nicotine dependence
CPT/HCPCS: 36415; 80053; 85027; 86780; C9803; U0003; U0005

== ENCOUNTER 2022-03-14 08:34 | Inpatient (IN) | payer OTHER ==
[2022-03-14 10:33] VITALS: BMI 19.8
[2022-03-14] MEDS ORDERED: ONDANSETRON *ODT* 4 MG TABLET SL PRN (15:00)
[2022-03-14] MEDS ORDERED: DICYCLOMINE HCL 10 MG CAPSULE PO PRN (15:00)
[2022-03-14] MEDS ORDERED: NICOTINE 10 MG CARTRIDGE (INHALER) IH PRN (15:00)
[2022-03-14] MEDS ORDERED: MAGNESIUM CITRATE 300 ML BOTTLE PO PRN (15:00)
[2022-03-14] MEDS ORDERED: BISMUTH SUBSALICYLATE 524 MG/30 ML PO PRN (15:00)
[2022-03-14] MEDS ORDERED: IBUPROFEN 600 MG TABLET (FP) PO PRN (15:00)
[2022-03-14] MEDS ORDERED: ACETAMINOPHEN 325 MG TABLET (FP) PO PRN (15:00)
[2022-03-14] MEDS ORDERED: MAGNESIUM HYDROX 2400MG/30ML ORAL SUSPENSION 30 ML CUP PO PRN (15:00)
[2022-03-14] MEDS ORDERED: LOPERAMIDE HCL 2 MG CAPSULE PO PRN (15:00)
[2022-03-14] MEDS ORDERED: LORazepam 1 MG TABLET PO PRN (15:00)
[2022-03-14] MEDS ORDERED: IBUPROFEN 400 MG TABLET (FP) PO PRN (15:00)
[2022-03-14] MEDS ORDERED: BENZOCAINE/MENTHOL (CHLORASEPTIC ) LOZENGE MM PRN (15:00)
[2022-03-14] MEDS ORDERED: MAG HYDROX/AL HYDROX/SIMETH 30 ML UNIT-DOSE CUP PO PRN (15:00)
[2022-03-14] MEDS ORDERED: ALBUTEROL SO4 HFA INHALER IH PRN (15:07)
[2022-03-14] MEDS: BUDESONIDE/FORMETEROL FUMARATE 160/4.5 mcg INHALER IH SCH (18:38)
[2022-03-14] MEDS: PRENATAL VITAMINS W/ FOLIC ACID TABLET (FP) PO SCH (18:38)
[2022-03-14] MEDS: LORazepam 2 MG TABLET PO SCH ×3 (18:39→22:16)
[2022-03-14] MEDS: metoPROLOL SUCCINATE 25 MG TAB.SR.24H (FP) PO SCH (18:39)
[2022-03-14] MEDS: hydrOXYzine PAMOATE 25 MG CAPSULE (FP) PO SCH ×2 (18:40→22:16)
[2022-03-14] MEDS ORDERED: SUVOREXANT 10 MG TABLET PO PRN (22:00)
[2022-03-14] MEDS ORDERED: MELATONIN 5 MG TABLETS PO SCH (22:00)
[2022-03-14] MEDS: ATORVASTATIN CA 20 MG TABLET (FP) PO SCH (22:16)
[2022-03-14] MEDS: THIAMINE HCL 100 MG TABLET (FP) PO SCH (22:16)
[2022-03-14] MEDS: SUVOREXANT 5 MG TABLET PO PRN (22:18)
[2022-03-15] MEDS: LORazepam 2 MG TABLET PO SCH ×3 (06:34→17:32)
[2022-03-15] MEDS: hydrOXYzine PAMOATE 25 MG CAPSULE (FP) PO SCH ×5 (06:34→22:21)
[2022-03-15] MEDS: PRENATAL VITAMINS W/ FOLIC ACID TABLET (FP) PO SCH (10:38)
[2022-03-15] MEDS: metoPROLOL SUCCINATE 25 MG TAB.SR.24H (FP) PO SCH (10:38)
[2022-03-15] MEDS: BUDESONIDE/FORMETEROL FUMARATE 160/4.5 mcg INHALER IH SCH (10:39)
[2022-03-15 10:52] LABS: CALCIUM 9.1 mg/dL (8.5-10.1)
[2022-03-15 10:53] LABS: BLOOD UREA NITROGEN 8.3 mg/dL (7-18)
[2022-03-15 10:56] LABS: CREATININE 0.6 mg/dL (0.55-1.3)
[2022-03-15 10:58] LABS: BILIRUBIN,TOTAL 0.9 mg/dL (0.2-1); TOT PROT 7.1 g/dl (6.4-8.2)
[2022-03-15 11:00] LABS: HEMOGLOBIN 11.7 GM/dL (11.7-16.9); MCH 26.5 pg (25.7-33.7); MCHC 31.5 g/dl (32.0-35.9); MEAN CELL VOLUME 83.9 fl (80-96); MEAN PLT VOLUME 10.5 fl (7.5-11.1); PLATELET COUNT 272 10^3/uL (134-434); RBC 4.41 M/mm3 (4.00-5.60); RDW 16.3 % (11.9-15.9); WHITE BLOOD COUNT 5.3 K/mm3 (4.0-10.0)
[2022-03-15 12:27] LABS: HIV INTERPRETATION NEGATIVE (NEGATIVE)
[2022-03-15] MEDS: ACETAMINOPHEN 325 MG TABLET (FP) PO PRN (17:33)
[2022-03-15] MEDS: THIAMINE HCL 100 MG TABLET (FP) PO SCH (22:21)
[2022-03-15] MEDS: ATORVASTATIN CA 20 MG TABLET (FP) PO SCH (22:21)
[2022-03-15] MEDS: SUVOREXANT 5 MG TABLET PO PRN (22:22)
[2022-03-16] MEDS: LORazepam 1 MG TABLET PO SCH ×4 (06:40→22:19)
[2022-03-16] MEDS: hydrOXYzine PAMOATE 25 MG CAPSULE (FP) PO SCH ×5 (06:40→22:20)
[2022-03-16] MEDS: ACETAMINOPHEN 325 MG TABLET (FP) PO PRN (06:41)
[2022-03-16] MEDS: BUDESONIDE/FORMETEROL FUMARATE 160/4.5 mcg INHALER IH SCH (10:30)
[2022-03-16] MEDS: PRENATAL VITAMINS W/ FOLIC ACID TABLET (FP) PO SCH (10:31)
[2022-03-16] MEDS: metoPROLOL SUCCINATE 25 MG TAB.SR.24H (FP) PO SCH (10:32)
[2022-03-16] MEDS: METHOCARBAMOL 500 MG TABLET PO PRN (10:32)
[2022-03-16 13:51] LABS: ALBUMIN 3.2 g/dl (3.4-5.0); BLOOD UREA NITROGEN 12.3 mg/dL (7-18)
[2022-03-16 13:52] LABS: CALCIUM 9.2 mg/dL (8.5-10.1)
[2022-03-16 13:57] LABS: BILIRUBIN,TOTAL 0.6 mg/dL (0.2-1); TOT PROT 7.1 g/dl (6.4-8.2)
[2022-03-16 14:03] LABS: CREATININE 0.7 mg/dL (0.55-1.3)
[2022-03-16] MEDS: NICOTINE 21 MG/24 HOURS TOPICAL PATCH TD SCH (14:49)
[2022-03-16] MEDS: SUVOREXANT 5 MG TABLET PO PRN (22:19)
[2022-03-16] MEDS: THIAMINE HCL 100 MG TABLET (FP) PO SCH (22:20)
[2022-03-16] MEDS: ATORVASTATIN CA 20 MG TABLET (FP) PO SCH (22:20)
[2022-03-17] MEDS ORDERED: LORazepam 0.5 MG TABLET PO PRN
[2022-03-17] MEDS: METHOCARBAMOL 500 MG TABLET PO PRN ×2 (00:54→23:41)
[2022-03-17] MEDS: LORazepam 0.5 MG TABLET PO SCH ×4 (05:26→22:21)
[2022-03-17] MEDS: hydrOXYzine PAMOATE 25 MG CAPSULE (FP) PO SCH ×5 (05:27→22:21)
[2022-03-17] MEDS: PRENATAL VITAMINS W/ FOLIC ACID TABLET (FP) PO SCH (10:50)
[2022-03-17] MEDS: metoPROLOL SUCCINATE 25 MG TAB.SR.24H (FP) PO SCH (10:50)
[2022-03-17] MEDS: NICOTINE 21 MG/24 HOURS TOPICAL PATCH TD SCH (10:50)
[2022-03-17] MEDS: BUDESONIDE/FORMETEROL FUMARATE 160/4.5 mcg INHALER IH SCH (10:52)
[2022-03-17] MEDS ORDERED: SUVOREXANT 5 MG TABLET PO PRN (22:00)
[2022-03-17] MEDS: ATORVASTATIN CA 20 MG TABLET (FP) PO SCH (22:21)
[2022-03-17] MEDS: THIAMINE HCL 100 MG TABLET (FP) PO SCH (22:22)
[2022-03-17 22:58] VITALS: RESP 18
[2022-03-18] MEDS ORDERED: LORazepam 0.5 MG TABLET PO ONE (05:00)
[2022-03-18] MEDS: hydrOXYzine PAMOATE 25 MG CAPSULE (FP) PO SCH (07:18)
[2022-03-18 09:18] VITALS: BP 141/86; PULSE 81; TEMP 96.4
== END 2022-03-18 09:30 | disposition home or self-care (01) | DRG 775 ==
LOC: YASAS 08:34 → Y3N 15:28
PROVIDERS: ADMIT Allergy & Immunology; ATTEND Surgery
PROC: HZ2ZZZZ Detoxification Services for Substance Abuse Treatment (ICD-10-PCS; principal; 2022-03-14)
DX: F10.230 Alcohol dependence with withdrawal, uncomplicated (principal); F17.220 Nicotine dependence, chewing tobacco, uncomplicated; F10.282 Alcohol dependence with alcohol-induced sleep disorder; F10.24 Alcohol dependence with alcohol-induced mood disorder; F19.24 Other psychoactive substance dependence with psychoactive substance-induced mood disorder; E78.5 Hyperlipidemia, unspecified; I10 Essential (primary) hypertension; J43.1 Panlobular emphysema; R73.9 Hyperglycemia, unspecified; R74.8 Abnormal levels of other serum enzymes; R63.4 Abnormal weight loss; Z68.1 Body mass index [BMI] 19.9 or less, adult; Z86.69 Personal history of other diseases of the nervous system and sense organs; Z86.59 Personal history of other mental and behavioral disorders
CPT/HCPCS: 36415; 80053; 83036; 85027; 86780; 87389; C9803-CS; U0003; U0005

== ENCOUNTER 2022-06-23 11:55 | Inpatient (IN) | payer OTHER ==
[2022-06-23 13:02] VITALS: BMI 19.8
[2022-06-23] MEDS ORDERED: NICOTINE POLACRILEX 2 MG GUM BUC PRN (13:48)
[2022-06-23] MEDS ORDERED: BENZOCAINE/MENTHOL (CHLORASEPTIC ) LOZENGE MM PRN (13:48)
[2022-06-23] MEDS ORDERED: LOPERAMIDE HCL 2 MG CAPSULE PO PRN (13:48)
[2022-06-23] MEDS ORDERED: POLYETHYLENE GLYCOL (HEALTHYLAX) 3350 17 GM PACKET PO PRN (13:48)
[2022-06-23] MEDS ORDERED: MAG HYDROX/AL HYDROX/SIMETH 30 ML UNIT-DOSE CUP PO PRN (13:48)
[2022-06-23] MEDS ORDERED: ACETAMINOPHEN 325 MG TABLET (FP) PO PRN (13:48)
[2022-06-23] MEDS ORDERED: MAGNESIUM HYDROX 2400MG/30ML ORAL SUSPENSION 30 ML CUP PO PRN (13:48)
[2022-06-23] MEDS ORDERED: ONDANSETRON *ODT* 4 MG TABLET SL PRN (13:48)
[2022-06-23] MEDS ORDERED: hydrOXYzine PAMOATE 25 MG CAPSULE (FP) PO PRN (13:48)
[2022-06-23] MEDS ORDERED: DICYCLOMINE HCL 10 MG CAPSULE PO PRN (13:48)
[2022-06-23] MEDS ORDERED: IBUPROFEN 400 MG TABLET (FP) PO PRN (13:48)
[2022-06-23] MEDS ORDERED: BISMUTH SUBSALICYLATE 262 MG/15 ML BTL PO PRN (13:48)
[2022-06-23] MEDS ORDERED: LORazepam 1 MG TABLET PO PRN (13:53)
[2022-06-23] MEDS ORDERED: ALBUTEROL SO4 HFA INHALER IH PRN (14:00)
[2022-06-23] MEDS: LORazepam 2 MG TABLET PO SCH ×2 (17:32→22:32)
[2022-06-23 19:48] LABS: HEMATOCRIT 38.5 % (35.4-49); MCH 26.6 pg (25.7-33.7); MCHC 31.2 g/dl (32.0-35.9); MEAN CELL VOLUME 85.3 fl (80-96); MEAN PLT VOLUME 10.9 fl (7.5-11.1); PLATELET COUNT 172 10^3/uL (134-434); RBC 4.51 M/mm3 (4.00-5.60); RDW 15.2 % (11.9-15.9); WHITE BLOOD COUNT 4.6 K/mm3 (4.0-10.0)
[2022-06-23] MEDS: BUDESONIDE/FORMETEROL FUMARATE 160/4.5 mcg INHALER IH SCH (22:31)
[2022-06-23] MEDS: MELATONIN 5 MG TABLETS PO SCH (22:32)
[2022-06-23] MEDS: GABAPENTIN 300 MG CAPSULE PO SCH (22:32)
[2022-06-23] MEDS: ATORVASTATIN CA 20 MG TABLET (FP) PO SCH (22:32)
[2022-06-23] MEDS: THIAMINE HCL 100 MG TABLET (FP) PO SCH (22:32)
[2022-06-23 23:38] LABS: ALBUMIN 3.7 g/dl (3.4-5.0); BLOOD UREA NITROGEN 8.1 mg/dL (7-18); CALCIUM 9.2 mg/dL (8.5-10.1)
[2022-06-23 23:41] LABS: CREATININE 0.8 mg/dL (0.55-1.3)
[2022-06-23 23:43] LABS: BILIRUBIN,TOTAL 0.7 mg/dL (0.2-1); TOT PROT 7.6 g/dl (6.4-8.2)
[2022-06-24] MEDS: LORazepam 2 MG TABLET PO SCH ×4 (05:54→22:21)
[2022-06-24] MEDS: PRENATAL VITAMINS W/ FOLIC ACID TABLET (FP) PO SCH (10:24)
[2022-06-24] MEDS: BUDESONIDE/FORMETEROL FUMARATE 160/4.5 mcg INHALER IH SCH ×2 (10:25→22:25)
[2022-06-24] MEDS: METHOCARBAMOL 500 MG TABLET PO PRN (10:26)
[2022-06-24] MEDS: metoPROLOL SUCCINATE 25 MG TAB.SR.24H (FP) PO SCH (10:26)
[2022-06-24] MEDS: MULTIVITAMINS (DAILY MVI) TABLET (FP) PO SCH (10:27)
[2022-06-24] MEDS: NICOTINE 7 MG/24 HOURS TOPICAL PATCH TD SCH (10:27)
[2022-06-24] MEDS: CYANOCOBALAMIN (VITAMIN B-12) 100 MCG TABLET PO SCH (10:27)
[2022-06-24] MEDS ORDERED: FLU VACC QS2022-23(6MOS UP)/PF 60 MCG/0.5 ML SYRINGE IM ONE (14:40)
[2022-06-24] MEDS: GABAPENTIN 300 MG CAPSULE PO SCH (22:21)
[2022-06-24] MEDS: THIAMINE HCL 100 MG TABLET (FP) PO SCH (22:21)
[2022-06-24] MEDS: MELATONIN 5 MG TABLETS PO SCH (22:21)
[2022-06-24] MEDS: ATORVASTATIN CA 20 MG TABLET (FP) PO SCH (22:22)
[2022-06-25] MEDS: LORazepam 1 MG TABLET PO SCH ×4 (05:48→22:07)
[2022-06-25] MEDS: MULTIVITAMINS (DAILY MVI) TABLET (FP) PO SCH (10:09)
[2022-06-25] MEDS: NICOTINE 7 MG/24 HOURS TOPICAL PATCH TD SCH (10:09)
[2022-06-25] MEDS: CYANOCOBALAMIN (VITAMIN B-12) 100 MCG TABLET PO SCH (10:09)
[2022-06-25] MEDS: metoPROLOL SUCCINATE 25 MG TAB.SR.24H (FP) PO SCH (10:09)
[2022-06-25] MEDS: PRENATAL VITAMINS W/ FOLIC ACID TABLET (FP) PO SCH (10:10)
[2022-06-25] MEDS: BUDESONIDE/FORMETEROL FUMARATE 160/4.5 mcg INHALER IH SCH ×2 (10:10→22:07)
[2022-06-25] MEDS: LACTULOSE 20 GM/30 ML UDC (FOR ORAL USE ONLY) PO SCH ×3 (15:08→22:06)
[2022-06-25] MEDS: THIAMINE HCL 100 MG TABLET (FP) PO SCH (22:06)
[2022-06-25] MEDS: ATORVASTATIN CA 20 MG TABLET (FP) PO SCH (22:06)
[2022-06-25] MEDS: MELATONIN 5 MG TABLETS PO SCH (22:06)
[2022-06-25] MEDS: GABAPENTIN 300 MG CAPSULE PO SCH (22:07)
[2022-06-26] MEDS ORDERED: LORazepam 0.5 MG TABLET PO PRN
[2022-06-26] MEDS: LORazepam 0.5 MG TABLET PO SCH ×4 (05:48→22:25)
[2022-06-26] MEDS: LACTULOSE 20 GM/30 ML UDC (FOR ORAL USE ONLY) PO SCH ×4 (10:16→22:26)
[2022-06-26] MEDS: metoPROLOL SUCCINATE 25 MG TAB.SR.24H (FP) PO SCH (10:16)
[2022-06-26] MEDS: PRENATAL VITAMINS W/ FOLIC ACID TABLET (FP) PO SCH (10:16)
[2022-06-26] MEDS: BUDESONIDE/FORMETEROL FUMARATE 160/4.5 mcg INHALER IH SCH ×2 (10:16→22:26)
[2022-06-26] MEDS: MULTIVITAMINS (DAILY MVI) TABLET (FP) PO SCH (10:16)
[2022-06-26] MEDS: CYANOCOBALAMIN (VITAMIN B-12) 100 MCG TABLET PO SCH (10:16)
[2022-06-26] MEDS: METHOCARBAMOL 500 MG TABLET PO PRN ×2 (10:16→22:26)
[2022-06-26] MEDS: NICOTINE 7 MG/24 HOURS TOPICAL PATCH TD SCH (10:19)
[2022-06-26 21:29] VITALS: RESP 18
[2022-06-26] MEDS: GABAPENTIN 300 MG CAPSULE PO SCH (22:23)
[2022-06-26] MEDS: THIAMINE HCL 100 MG TABLET (FP) PO SCH (22:23)
[2022-06-26] MEDS: ATORVASTATIN CA 20 MG TABLET (FP) PO SCH (22:23)
[2022-06-26] MEDS: MELATONIN 5 MG TABLETS PO SCH (22:23)
[2022-06-27] MEDS ORDERED: LORazepam 0.5 MG TABLET PO ONE (05:00)
[2022-06-27 09:29] VITALS: BP 143/86; PULSE 76; TEMP 97.8
[2022-06-27] MEDS: PRENATAL VITAMINS W/ FOLIC ACID TABLET (FP) PO SCH (10:43)
[2022-06-27] MEDS: MULTIVITAMINS (DAILY MVI) TABLET (FP) PO SCH (10:44)
[2022-06-27] MEDS: metoPROLOL SUCCINATE 25 MG TAB.SR.24H (FP) PO SCH (10:44)
[2022-06-27] MEDS: LACTULOSE 20 GM/30 ML UDC (FOR ORAL USE ONLY) PO SCH (10:44)
[2022-06-27] MEDS: NICOTINE 7 MG/24 HOURS TOPICAL PATCH TD SCH (10:44)
[2022-06-27] MEDS: CYANOCOBALAMIN (VITAMIN B-12) 100 MCG TABLET PO SCH (10:44)
[2022-06-27] MEDS: BUDESONIDE/FORMETEROL FUMARATE 160/4.5 mcg INHALER IH SCH (10:46)
== END 2022-06-27 12:20 | disposition other institution (70) | DRG 775 ==
LOC: YASAS 11:55 → Y6N 13:57
PROVIDERS: ADMIT Allergy & Immunology; ATTEND Surgery
PROC: HZ2ZZZZ Detoxification Services for Substance Abuse Treatment (ICD-10-PCS; principal; 2022-06-23)
DX: F10.230 Alcohol dependence with withdrawal, uncomplicated (principal); F10.24 Alcohol dependence with alcohol-induced mood disorder; F10.282 Alcohol dependence with alcohol-induced sleep disorder; F12.20 Cannabis dependence, uncomplicated; F17.210 Nicotine dependence, cigarettes, uncomplicated; F32.A Depression, unspecified; F43.10 Post-traumatic stress disorder, unspecified; I10 Essential (primary) hypertension; I25.2 Old myocardial infarction; E78.5 Hyperlipidemia, unspecified; J43.1 Panlobular emphysema; E72.20 Disorder of urea cycle metabolism, unspecified; K21.9 Gastro-esophageal reflux disease without esophagitis; Z95.5 Presence of coronary angioplasty implant and graft; Z86.69 Personal history of other diseases of the nervous system and sense organs; Z91.51 Personal history of suicidal behavior; Z56.0 Unemployment, unspecified; Z59.01 Sheltered homelessness
CPT/HCPCS: 36415; 80053; 82140; 85027; 86705; 86707; 86780; 86803; 87340; 87350; 87517; C9803-CS; U0003; U0005

== ENCOUNTER 2022-06-27 12:27 | Inpatient (IN) | payer OTHER ==
[2022-06-27] MEDS ORDERED: POLYETHYLENE GLYCOL (HEALTHYLAX) 3350 17 GM PACKET PO PRN (13:49)
[2022-06-27] MEDS ORDERED: NICOTINE POLACRILEX 4 MG GUM BUC PRN (13:49)
[2022-06-27] MEDS ORDERED: P-EPHED 60MG/TRIPROLIDI 2.5MG TABLET PO PRN (13:49)
[2022-06-27] MEDS ORDERED: MAG HYDROX/AL HYDROX/SIMETH 30 ML UNIT-DOSE CUP PO PRN (13:49)
[2022-06-27] MEDS ORDERED: BENZOCAINE/MENTHOL (CHLORASEPTIC ) LOZENGE MM PRN (13:49)
[2022-06-27] MEDS ORDERED: hydrOXYzine PAMOATE 25 MG CAPSULE (FP) PO PRN (13:49)
[2022-06-27] MEDS ORDERED: guaiFENesin 200 MG/10 ML 10 ML UNIT-DOSE CUPS PO PRN (13:49)
[2022-06-27] MEDS ORDERED: ACETAMINOPHEN 325 MG TABLET (FP) PO PRN (13:49)
[2022-06-27] MEDS ORDERED: IBUPROFEN 400 MG TABLET (FP) PO PRN (13:49)
[2022-06-27] MEDS ORDERED: LOPERAMIDE HCL 2 MG CAPSULE PO PRN (13:49)
[2022-06-27] MEDS ORDERED: MAGNESIUM HYDROX 2400MG/30ML ORAL SUSPENSION 30 ML CUP PO PRN (13:49)
[2022-06-27] MEDS ORDERED: ALBUTEROL SO4 HFA INHALER IH PRN (13:52)
[2022-06-27] MEDS: LACTULOSE 20 GM/30 ML UDC (FOR ORAL USE ONLY) PO SCH ×3 (14:54→21:21)
[2022-06-27] MEDS: THIAMINE HCL 100 MG TABLET (FP) PO SCH (21:20)
[2022-06-27] MEDS: MELATONIN 5 MG TABLETS PO SCH (21:20)
[2022-06-27] MEDS: BUDESONIDE/FORMETEROL FUMARATE 160/4.5 mcg INHALER IH SCH (21:22)
[2022-06-27] MEDS ORDERED: ATORVASTATIN CA 20 MG TABLET (FP) PO SCH (22:00)
[2022-06-28] MEDS: metoPROLOL SUCCINATE 25 MG TAB.SR.24H (FP) PO SCH (10:05)
[2022-06-28] MEDS: LACTULOSE 20 GM/30 ML UDC (FOR ORAL USE ONLY) PO SCH ×4 (10:05→21:22)
[2022-06-28] MEDS: NICOTINE 14 MG/24 HOURS TOPICAL PATCH TD SCH (10:06)
[2022-06-28] MEDS: PRENATAL VITAMINS W/ FOLIC ACID TABLET (FP) PO SCH (10:06)
[2022-06-28] MEDS: BUDESONIDE/FORMETEROL FUMARATE 160/4.5 mcg INHALER IH SCH ×2 (10:08→21:23)
[2022-06-28] MEDS: THIAMINE HCL 100 MG TABLET (FP) PO SCH (21:20)
[2022-06-28] MEDS: MELATONIN 5 MG TABLETS PO SCH (21:20)
[2022-06-28] MEDS: ATORVASTATIN CA 10 MG TABLET (FP) PO SCH (21:21)
[2022-06-28] MEDS: SUVOREXANT 10 MG TABLET PO PRN (21:22)
[2022-06-29] MEDS: NICOTINE 14 MG/24 HOURS TOPICAL PATCH TD SCH (10:03)
[2022-06-29] MEDS: PRENATAL VITAMINS W/ FOLIC ACID TABLET (FP) PO SCH (10:03)
[2022-06-29] MEDS: LACTULOSE 20 GM/30 ML UDC (FOR ORAL USE ONLY) PO SCH ×4 (10:03→21:53)
[2022-06-29] MEDS: metoPROLOL SUCCINATE 25 MG TAB.SR.24H (FP) PO SCH (10:03)
[2022-06-29] MEDS: BUDESONIDE/FORMETEROL FUMARATE 160/4.5 mcg INHALER IH SCH ×2 (10:04→21:55)
[2022-06-29] MEDS: MELATONIN 5 MG TABLETS PO SCH (21:53)
[2022-06-29] MEDS: ATORVASTATIN CA 10 MG TABLET (FP) PO SCH (21:53)
[2022-06-29] MEDS: THIAMINE HCL 100 MG TABLET (FP) PO SCH (21:53)
[2022-06-29] MEDS: SUVOREXANT 10 MG TABLET PO PRN (21:54)
[2022-06-30] MEDS: PRENATAL VITAMINS W/ FOLIC ACID TABLET (FP) PO SCH (09:55)
[2022-06-30] MEDS: LACTULOSE 20 GM/30 ML UDC (FOR ORAL USE ONLY) PO SCH ×4 (09:55→21:31)
[2022-06-30] MEDS: metoPROLOL SUCCINATE 25 MG TAB.SR.24H (FP) PO SCH (09:55)
[2022-06-30] MEDS: NICOTINE 14 MG/24 HOURS TOPICAL PATCH TD SCH (09:55)
[2022-06-30] MEDS: BUDESONIDE/FORMETEROL FUMARATE 160/4.5 mcg INHALER IH SCH ×2 (09:55→21:35)
[2022-06-30] MEDS: THIAMINE HCL 100 MG TABLET (FP) PO SCH (21:30)
[2022-06-30] MEDS: MELATONIN 5 MG TABLETS PO SCH (21:30)
[2022-06-30] MEDS: SUVOREXANT 10 MG TABLET PO PRN (21:31)
[2022-06-30] MEDS: ATORVASTATIN CA 10 MG TABLET (FP) PO SCH (21:31)
[2022-07-01] MEDS: PRENATAL VITAMINS W/ FOLIC ACID TABLET (FP) PO SCH (10:00)
[2022-07-01] MEDS: LACTULOSE 20 GM/30 ML UDC (FOR ORAL USE ONLY) PO SCH ×4 (10:00→21:19)
[2022-07-01] MEDS: NICOTINE 14 MG/24 HOURS TOPICAL PATCH TD SCH (10:00)
[2022-07-01] MEDS: BUDESONIDE/FORMETEROL FUMARATE 160/4.5 mcg INHALER IH SCH ×2 (10:01→21:19)
[2022-07-01] MEDS: metoPROLOL SUCCINATE 25 MG TAB.SR.24H (FP) PO SCH (10:01)
[2022-07-01] MEDS: NICOTINE 10 MG CARTRIDGE (INHALER) IH PRN (14:06)
[2022-07-01] MEDS: ATORVASTATIN CA 10 MG TABLET (FP) PO SCH (21:17)
[2022-07-01] MEDS: THIAMINE HCL 100 MG TABLET (FP) PO SCH (21:17)
[2022-07-01] MEDS: MELATONIN 5 MG TABLETS PO SCH (21:18)
[2022-07-01] MEDS: SUVOREXANT 10 MG TABLET PO PRN (21:18)
[2022-07-02] MEDS: NICOTINE 14 MG/24 HOURS TOPICAL PATCH TD SCH (09:54)
[2022-07-02] MEDS: PRENATAL VITAMINS W/ FOLIC ACID TABLET (FP) PO SCH (09:54)
[2022-07-02] MEDS: BUDESONIDE/FORMETEROL FUMARATE 160/4.5 mcg INHALER IH SCH ×2 (09:55→21:37)
[2022-07-02] MEDS: metoPROLOL SUCCINATE 25 MG TAB.SR.24H (FP) PO SCH (09:55)
[2022-07-02] MEDS: LACTULOSE 20 GM/30 ML UDC (FOR ORAL USE ONLY) PO SCH ×4 (09:56→21:37)
[2022-07-02] MEDS: NICOTINE 10 MG CARTRIDGE (INHALER) IH PRN (17:51)
[2022-07-02] MEDS: THIAMINE HCL 100 MG TABLET (FP) PO SCH (21:37)
[2022-07-02] MEDS: MELATONIN 5 MG TABLETS PO SCH (21:37)
[2022-07-02] MEDS: ATORVASTATIN CA 10 MG TABLET (FP) PO SCH (21:37)
[2022-07-02] MEDS: SUVOREXANT 10 MG TABLET PO PRN (21:40)
[2022-07-03] MEDS: BUDESONIDE/FORMETEROL FUMARATE 160/4.5 mcg INHALER IH SCH ×2 (09:49→21:36)
[2022-07-03] MEDS: metoPROLOL SUCCINATE 25 MG TAB.SR.24H (FP) PO SCH (09:49)
[2022-07-03] MEDS: PRENATAL VITAMINS W/ FOLIC ACID TABLET (FP) PO SCH (09:49)
[2022-07-03] MEDS: NICOTINE 14 MG/24 HOURS TOPICAL PATCH TD SCH (09:49)
[2022-07-03] MEDS: LACTULOSE 20 GM/30 ML UDC (FOR ORAL USE ONLY) PO SCH ×4 (09:50→21:36)
[2022-07-03] MEDS: ATORVASTATIN CA 10 MG TABLET (FP) PO SCH (21:36)
[2022-07-03] MEDS: MELATONIN 5 MG TABLETS PO SCH (21:36)
[2022-07-03] MEDS: THIAMINE HCL 100 MG TABLET (FP) PO SCH (21:36)
[2022-07-03] MEDS: SUVOREXANT 10 MG TABLET PO PRN (21:38)
[2022-07-04] MEDS: NICOTINE 14 MG/24 HOURS TOPICAL PATCH TD SCH (10:04)
[2022-07-04] MEDS: LACTULOSE 20 GM/30 ML UDC (FOR ORAL USE ONLY) PO SCH ×5 (10:04→21:26)
[2022-07-04] MEDS: metoPROLOL SUCCINATE 25 MG TAB.SR.24H (FP) PO SCH (10:05)
[2022-07-04] MEDS: BUDESONIDE/FORMETEROL FUMARATE 160/4.5 mcg INHALER IH SCH ×2 (10:05→21:26)
[2022-07-04] MEDS: PRENATAL VITAMINS W/ FOLIC ACID TABLET (FP) PO SCH (10:05)
[2022-07-04] MEDS: ATORVASTATIN CA 10 MG TABLET (FP) PO SCH (21:25)
[2022-07-04] MEDS: THIAMINE HCL 100 MG TABLET (FP) PO SCH (21:25)
[2022-07-04] MEDS: MELATONIN 5 MG TABLETS PO SCH (21:25)
[2022-07-04] MEDS: SUVOREXANT 10 MG TABLET PO PRN (21:26)
[2022-07-05] MEDS: PRENATAL VITAMINS W/ FOLIC ACID TABLET (FP) PO SCH (09:38)
[2022-07-05] MEDS: BUDESONIDE/FORMETEROL FUMARATE 160/4.5 mcg INHALER IH SCH ×2 (09:38→21:30)
[2022-07-05] MEDS: LACTULOSE 20 GM/30 ML UDC (FOR ORAL USE ONLY) PO SCH ×4 (09:38→21:29)
[2022-07-05] MEDS: metoPROLOL SUCCINATE 25 MG TAB.SR.24H (FP) PO SCH (09:39)
[2022-07-05] MEDS: NICOTINE 14 MG/24 HOURS TOPICAL PATCH TD SCH (09:39)
[2022-07-05] MEDS: ATORVASTATIN CA 10 MG TABLET (FP) PO SCH (21:29)
[2022-07-05] MEDS: SUVOREXANT 10 MG TABLET PO PRN (21:29)
[2022-07-05] MEDS: MELATONIN 5 MG TABLETS PO SCH (21:29)
[2022-07-05] MEDS: THIAMINE HCL 100 MG TABLET (FP) PO SCH (21:30)
[2022-07-06] MEDS: PRENATAL VITAMINS W/ FOLIC ACID TABLET (FP) PO SCH (09:48)
[2022-07-06] MEDS: NICOTINE 14 MG/24 HOURS TOPICAL PATCH TD SCH (09:48)
[2022-07-06] MEDS: LACTULOSE 20 GM/30 ML UDC (FOR ORAL USE ONLY) PO SCH ×4 (09:48→21:15)
[2022-07-06] MEDS: metoPROLOL SUCCINATE 25 MG TAB.SR.24H (FP) PO SCH (09:49)
[2022-07-06] MEDS: BUDESONIDE/FORMETEROL FUMARATE 160/4.5 mcg INHALER IH SCH ×2 (09:49→21:15)
[2022-07-06] MEDS: SUVOREXANT 10 MG TABLET PO PRN (21:14)
[2022-07-06] MEDS: ATORVASTATIN CA 10 MG TABLET (FP) PO SCH (21:14)
[2022-07-06] MEDS: THIAMINE HCL 100 MG TABLET (FP) PO SCH (21:15)
[2022-07-06] MEDS: MELATONIN 5 MG TABLETS PO SCH (21:15)
[2022-07-07] MEDS: BUDESONIDE/FORMETEROL FUMARATE 160/4.5 mcg INHALER IH SCH ×2 (09:11→21:08)
[2022-07-07] MEDS: metoPROLOL SUCCINATE 25 MG TAB.SR.24H (FP) PO SCH (09:12)
[2022-07-07] MEDS: PRENATAL VITAMINS W/ FOLIC ACID TABLET (FP) PO SCH (09:12)
[2022-07-07] MEDS: LACTULOSE 20 GM/30 ML UDC (FOR ORAL USE ONLY) PO SCH ×4 (09:12→21:07)
[2022-07-07] MEDS: NICOTINE 14 MG/24 HOURS TOPICAL PATCH TD SCH (09:13)
[2022-07-07] MEDS: NICOTINE 10 MG CARTRIDGE (INHALER) IH PRN (14:59)
[2022-07-07] MEDS: MELATONIN 5 MG TABLETS PO SCH (21:07)
[2022-07-07] MEDS: THIAMINE HCL 100 MG TABLET (FP) PO SCH (21:07)
[2022-07-07] MEDS: ATORVASTATIN CA 10 MG TABLET (FP) PO SCH (21:07)
[2022-07-07] MEDS: SUVOREXANT 10 MG TABLET PO PRN (21:08)
[2022-07-08] MEDS: metoPROLOL SUCCINATE 25 MG TAB.SR.24H (FP) PO SCH (09:22)
[2022-07-08] MEDS: LACTULOSE 20 GM/30 ML UDC (FOR ORAL USE ONLY) PO SCH ×4 (09:22→21:19)
[2022-07-08] MEDS: PRENATAL VITAMINS W/ FOLIC ACID TABLET (FP) PO SCH (09:22)
[2022-07-08] MEDS: BUDESONIDE/FORMETEROL FUMARATE 160/4.5 mcg INHALER IH SCH ×2 (09:23→21:20)
[2022-07-08] MEDS: NICOTINE 14 MG/24 HOURS TOPICAL PATCH TD SCH (09:23)
[2022-07-08 15:40] LABS: ALBUMIN 3.5 g/dl (3.4-5.0); BLOOD UREA NITROGEN 12.9 mg/dL (7-18); CALCIUM 9.3 mg/dL (8.5-10.1)
[2022-07-08 15:45] LABS: BILIRUBIN,TOTAL 0.5 mg/dL (0.2-1); TOT PROT 7.5 g/dl (6.4-8.2)
[2022-07-08] MEDS: ATORVASTATIN CA 10 MG TABLET (FP) PO SCH (21:19)
[2022-07-08] MEDS: MELATONIN 5 MG TABLETS PO SCH (21:19)
[2022-07-08] MEDS: THIAMINE HCL 100 MG TABLET (FP) PO SCH (21:19)
[2022-07-08] MEDS: SUVOREXANT 10 MG TABLET PO PRN (21:20)
[2022-07-09] MEDS: NICOTINE 14 MG/24 HOURS TOPICAL PATCH TD SCH (09:38)
[2022-07-09] MEDS: PRENATAL VITAMINS W/ FOLIC ACID TABLET (FP) PO SCH (09:38)
[2022-07-09] MEDS: LACTULOSE 20 GM/30 ML UDC (FOR ORAL USE ONLY) PO SCH ×4 (09:38→21:26)
[2022-07-09] MEDS: metoPROLOL SUCCINATE 25 MG TAB.SR.24H (FP) PO SCH (09:38)
[2022-07-09] MEDS: BUDESONIDE/FORMETEROL FUMARATE 160/4.5 mcg INHALER IH SCH ×2 (09:39→21:26)
[2022-07-09] MEDS: NICOTINE 10 MG CARTRIDGE (INHALER) IH PRN (09:39)
[2022-07-09] MEDS: THIAMINE HCL 100 MG TABLET (FP) PO SCH (21:26)
[2022-07-09] MEDS: ATORVASTATIN CA 10 MG TABLET (FP) PO SCH (21:26)
[2022-07-09] MEDS: MELATONIN 5 MG TABLETS PO SCH (21:26)
[2022-07-09] MEDS: SUVOREXANT 10 MG TABLET PO PRN (21:27)
[2022-07-10] MEDS: NICOTINE 14 MG/24 HOURS TOPICAL PATCH TD SCH (10:01)
[2022-07-10] MEDS: PRENATAL VITAMINS W/ FOLIC ACID TABLET (FP) PO SCH (10:01)
[2022-07-10] MEDS: BUDESONIDE/FORMETEROL FUMARATE 160/4.5 mcg INHALER IH SCH ×2 (10:02→21:21)
[2022-07-10] MEDS: NICOTINE 10 MG CARTRIDGE (INHALER) IH PRN (10:02)
[2022-07-10] MEDS: LACTULOSE 20 GM/30 ML UDC (FOR ORAL USE ONLY) PO SCH ×4 (10:02→21:22)
[2022-07-10] MEDS: metoPROLOL SUCCINATE 25 MG TAB.SR.24H (FP) PO SCH (10:02)
[2022-07-10] MEDS: THIAMINE HCL 100 MG TABLET (FP) PO SCH (21:20)
[2022-07-10] MEDS: MELATONIN 5 MG TABLETS PO SCH (21:21)
[2022-07-10] MEDS: ATORVASTATIN CA 10 MG TABLET (FP) PO SCH (21:21)
[2022-07-10] MEDS: SUVOREXANT 10 MG TABLET PO PRN (21:22)
[2022-07-11] MEDS: PRENATAL VITAMINS W/ FOLIC ACID TABLET (FP) PO SCH (09:59)
[2022-07-11] MEDS: metoPROLOL SUCCINATE 25 MG TAB.SR.24H (FP) PO SCH (09:59)
[2022-07-11] MEDS: LACTULOSE 20 GM/30 ML UDC (FOR ORAL USE ONLY) PO SCH ×4 (09:59→21:27)
[2022-07-11] MEDS: BUDESONIDE/FORMETEROL FUMARATE 160/4.5 mcg INHALER IH SCH ×2 (09:59→21:28)
[2022-07-11] MEDS: NICOTINE 14 MG/24 HOURS TOPICAL PATCH TD SCH (09:59)
[2022-07-11] MEDS: SUVOREXANT 10 MG TABLET PO PRN (21:26)
[2022-07-11] MEDS: THIAMINE HCL 100 MG TABLET (FP) PO SCH (21:27)
[2022-07-11] MEDS: ATORVASTATIN CA 10 MG TABLET (FP) PO SCH (21:27)
[2022-07-11] MEDS: MELATONIN 5 MG TABLETS PO SCH (21:27)
[2022-07-12 06:49] VITALS: BP 145/87; PULSE 59; RESP 18; TEMP 98.2
[2022-07-12] MEDS: LACTULOSE 20 GM/30 ML UDC (FOR ORAL USE ONLY) PO SCH (09:38)
[2022-07-12] MEDS: BUDESONIDE/FORMETEROL FUMARATE 160/4.5 mcg INHALER IH SCH (09:38)
[2022-07-12] MEDS: metoPROLOL SUCCINATE 25 MG TAB.SR.24H (FP) PO SCH (09:38)
[2022-07-12] MEDS: NICOTINE 14 MG/24 HOURS TOPICAL PATCH TD SCH (09:38)
[2022-07-12] MEDS: PRENATAL VITAMINS W/ FOLIC ACID TABLET (FP) PO SCH (09:39)
== END 2022-07-12 09:39 | disposition home or self-care (01) | DRG 772 ==
LOC: YASAS 12:27 → Y3W 13:05
PROVIDERS: ADMIT Allergy & Immunology; ATTEND Psychiatry & Neurology Pain Medicine
PROC: HZ42ZZZ Group Counseling for Substance Abuse Treatment, Cognitive-Behavioral (ICD-10-PCS; principal; 2022-06-27)
DX: F10.20 Alcohol dependence, uncomplicated (principal); F12.20 Cannabis dependence, uncomplicated; F17.210 Nicotine dependence, cigarettes, uncomplicated; F10.282 Alcohol dependence with alcohol-induced sleep disorder; F10.24 Alcohol dependence with alcohol-induced mood disorder; F32.A Depression, unspecified; F43.10 Post-traumatic stress disorder, unspecified; E78.5 Hyperlipidemia, unspecified; J43.9 Emphysema, unspecified; K21.9 Gastro-esophageal reflux disease without esophagitis; I10 Essential (primary) hypertension; I25.2 Old myocardial infarction; Z95.5 Presence of coronary angioplasty implant and graft; Z86.19 Personal history of other infectious and parasitic diseases; Z86.69 Personal history of other diseases of the nervous system and sense organs
CPT/HCPCS: 36415; 80053; 82140; C9803-CS; U0003; U0005

== ENCOUNTER 2022-10-20 11:21 | Inpatient (IN) | payer OTHER ==
[2022-10-20 11:52] VITALS: BMI 18.4
[2022-10-20] MEDS ORDERED: ACETAMINOPHEN 325 MG TABLET (FP) PO PRN (12:08)
[2022-10-20] MEDS ORDERED: LORazepam 1 MG TABLET PO PRN (12:08)
[2022-10-20] MEDS ORDERED: LOPERAMIDE HCL 2 MG CAPSULE PO PRN (12:08)
[2022-10-20] MEDS ORDERED: IBUPROFEN 400 MG TABLET (FP) PO PRN (12:08)
[2022-10-20] MEDS ORDERED: DICYCLOMINE HCL 10 MG CAPSULE PO PRN (12:08)
[2022-10-20] MEDS ORDERED: MAG HYDROX/AL HYDROX/SIMETH 30 ML UNIT-DOSE CUP PO PRN (12:08)
[2022-10-20] MEDS ORDERED: POLYETHYLENE GLYCOL (HEALTHYLAX) 3350 17 GM PACKET PO PRN (12:08)
[2022-10-20] MEDS ORDERED: BENZONATATE 200 MG CAPSULE PO PRN (12:08)
[2022-10-20] MEDS ORDERED: MAGNESIUM HYDROX 2400MG/30ML ORAL SUSPENSION 30 ML CUP PO PRN (12:08)
[2022-10-20] MEDS ORDERED: guaiFENesin 600 MG TABLET.ER (FP) PO PRN (12:08)
[2022-10-20] MEDS ORDERED: ONDANSETRON *ODT* 4 MG TABLET SL PRN (12:08)
[2022-10-20] MEDS ORDERED: BISMUTH SUBSALICYLATE 262 MG/15 ML BTL PO PRN (12:08)
[2022-10-20] MEDS ORDERED: BENZOCAINE/MENTHOL (CHLORASEPTIC ) LOZENGE MM PRN (12:08)
[2022-10-20] MEDS ORDERED: IBUPROFEN 600 MG TABLET (FP) PO PRN (12:08)
[2022-10-20] MEDS ORDERED: ALBUTEROL SO4 HFA INHALER IH PRN (12:17)
[2022-10-20] MEDS ORDERED: hydrOXYzine PAMOATE 25 MG CAPSULE (FP) PO ONE (13:36)
[2022-10-20] MEDS: hydrOXYzine PAMOATE 25 MG CAPSULE (FP) PO PRN ×2 (13:37→22:30)
[2022-10-20] MEDS: LORazepam 2 MG TABLET PO SCH ×2 (17:19→22:26)
[2022-10-20] MEDS: METHOCARBAMOL 500 MG TABLET PO PRN (17:20)
[2022-10-20] MEDS: THIAMINE HCL 100 MG TABLET (FP) PO SCH (22:26)
[2022-10-20] MEDS: MELATONIN 5 MG TABLETS PO SCH (22:27)
[2022-10-20] MEDS: ATORVASTATIN CA 10 MG TABLET (FP) PO SCH (22:28)
[2022-10-20] MEDS: FAMOTIDINE 20 MG TABLET PO SCH (22:28)
[2022-10-20] MEDS: BUDESONIDE/FORMETEROL FUMARATE 160/4.5 mcg INHALER IH SCH (22:32)
[2022-10-20] MEDS: diazePAM 5 MG TABLET PO SCH (23:53)
[2022-10-20] MEDS: ASPIRIN 81 MG CHEWABLE TABLETS PO SCH (23:53)
[2022-10-20] MEDS: CARVEDILOL 3.125 MG TABLET (FP) PO SCH (23:53)
[2022-10-21] MEDS: diazePAM 5 MG TABLET PO SCH ×4 (05:19→22:40)
[2022-10-21] MEDS ORDERED: COLLOIDAL OATMEAL 1 BAR EACH TP PRN (09:01)
[2022-10-21] MEDS: ASPIRIN 81 MG CHEWABLE TABLETS PO SCH (10:16)
[2022-10-21] MEDS: PRENATAL VITAMINS W/ FOLIC ACID TABLET (FP) PO SCH (10:16)
[2022-10-21] MEDS: LISINOPRIL 10 MG TABLET PO SCH (10:16)
[2022-10-21] MEDS: FAMOTIDINE 20 MG TABLET PO SCH ×2 (10:17→22:39)
[2022-10-21] MEDS: BUDESONIDE/FORMETEROL FUMARATE 160/4.5 mcg INHALER IH SCH ×2 (10:17→22:38)
[2022-10-21] MEDS: METHOCARBAMOL 500 MG TABLET PO PRN (10:17)
[2022-10-21] MEDS: hydrOXYzine PAMOATE 25 MG CAPSULE (FP) PO PRN (10:17)
[2022-10-21 11:20] LABS: HEMATOCRIT 38.5 % (35.4-49); HEMOGLOBIN 12.5 GM/dL (11.7-16.9); MCH 26.6 pg (25.7-33.7); MCHC 32.4 g/dl (32.0-35.9); MEAN CELL VOLUME 82.1 fl (80-96); PLATELET COUNT 136 10^3/uL (134-434); RBC 4.69 M/mm3 (4.00-5.60); WHITE BLOOD COUNT 4.4 K/mm3 (4.0-10.0)
[2022-10-21] MEDS: CARVEDILOL 3.125 MG TABLET (FP) PO SCH ×2 (12:00→22:39)
[2022-10-21 12:22] LABS: ALBUMIN 3.9 g/dl (3.4-5.0); BILIRUBIN,TOTAL 0.4 mg/dL (0.2-1); BLOOD UREA NITROGEN 18.4 mg/dL (7-18); CALCIUM 9.8 mg/dL (8.5-10.1); CREATININE 1.1 mg/dL (0.55-1.3); TOT PROT 7.8 g/dl (6.4-8.2)
[2022-10-21] MEDS: FLUTICASONE PROP 0.05% 16 GM NASAL SPRAY NS SCH (13:21)
[2022-10-21] MEDS: ATORVASTATIN CA 10 MG TABLET (FP) PO SCH (22:39)
[2022-10-21] MEDS: THIAMINE HCL 100 MG TABLET (FP) PO SCH (22:39)
[2022-10-21] MEDS: MELATONIN 5 MG TABLETS PO SCH (22:39)
[2022-10-22] MEDS ORDERED: LORazepam 1 MG TABLET PO SCH (05:00)
[2022-10-22] MEDS: diazePAM 5 MG TABLET PO SCH ×3 (05:32→22:16)
[2022-10-22] MEDS: METHOCARBAMOL 500 MG TABLET PO PRN (10:23)
[2022-10-22] MEDS: ASPIRIN 81 MG CHEWABLE TABLETS PO SCH (10:23)
[2022-10-22] MEDS: FAMOTIDINE 20 MG TABLET PO SCH ×2 (10:23→22:16)
[2022-10-22] MEDS: PRENATAL VITAMINS W/ FOLIC ACID TABLET (FP) PO SCH (10:23)
[2022-10-22] MEDS: LISINOPRIL 10 MG TABLET PO SCH (10:23)
[2022-10-22] MEDS: diazePAM 5 MG TABLET PO PRN (10:24)
[2022-10-22] MEDS: hydrOXYzine PAMOATE 25 MG CAPSULE (FP) PO PRN (10:24)
[2022-10-22] MEDS: CARVEDILOL 3.125 MG TABLET (FP) PO SCH ×2 (10:26→22:16)
[2022-10-22] MEDS: FLUTICASONE PROP 0.05% 16 GM NASAL SPRAY NS SCH (10:26)
[2022-10-22] MEDS: BUDESONIDE/FORMETEROL FUMARATE 160/4.5 mcg INHALER IH SCH ×2 (10:26→22:17)
[2022-10-22] MEDS: ATORVASTATIN CA 10 MG TABLET (FP) PO SCH (22:16)
[2022-10-22] MEDS: THIAMINE HCL 100 MG TABLET (FP) PO SCH (22:16)
[2022-10-22] MEDS: MELATONIN 5 MG TABLETS PO SCH (22:17)
[2022-10-23] MEDS ORDERED: LORazepam 0.5 MG TABLET PO PRN
[2022-10-23] MEDS ORDERED: LORazepam 0.5 MG TABLET PO SCH (05:00)
[2022-10-23] MEDS: diazePAM 5 MG TABLET PO SCH ×2 (05:30→17:24)
[2022-10-23] MEDS: ASPIRIN 81 MG CHEWABLE TABLETS PO SCH (10:20)
[2022-10-23] MEDS: FLUTICASONE PROP 0.05% 16 GM NASAL SPRAY NS SCH (10:20)
[2022-10-23] MEDS: PRENATAL VITAMINS W/ FOLIC ACID TABLET (FP) PO SCH (10:20)
[2022-10-23] MEDS: METHOCARBAMOL 500 MG TABLET PO PRN (10:20)
[2022-10-23] MEDS: hydrOXYzine PAMOATE 25 MG CAPSULE (FP) PO PRN (10:20)
[2022-10-23] MEDS: LISINOPRIL 10 MG TABLET PO SCH (10:20)
[2022-10-23] MEDS: CARVEDILOL 3.125 MG TABLET (FP) PO SCH ×2 (10:20→22:07)
[2022-10-23] MEDS: FAMOTIDINE 20 MG TABLET PO SCH ×2 (10:21→22:07)
[2022-10-23] MEDS: diazePAM 5 MG TABLET PO PRN ×2 (10:21→22:07)
[2022-10-23] MEDS: BUDESONIDE/FORMETEROL FUMARATE 160/4.5 mcg INHALER IH SCH ×2 (10:22→22:07)
[2022-10-23 16:50] VITALS: RESP 18
[2022-10-23] MEDS: ATORVASTATIN CA 10 MG TABLET (FP) PO SCH (22:06)
[2022-10-23] MEDS: MELATONIN 5 MG TABLETS PO SCH (22:07)
[2022-10-23] MEDS: THIAMINE HCL 100 MG TABLET (FP) PO SCH (22:07)
[2022-10-24] MEDS ORDERED: LORazepam 0.5 MG TABLET PO ONE (05:00)
[2022-10-24] MEDS ORDERED: diazePAM 5 MG TABLET PO ONE (06:00)
[2022-10-24 09:11] VITALS: BP 145/83; PULSE 76; TEMP 98.3
[2022-10-24] MEDS: ASPIRIN 81 MG CHEWABLE TABLETS PO SCH (10:11)
[2022-10-24] MEDS: PRENATAL VITAMINS W/ FOLIC ACID TABLET (FP) PO SCH (10:11)
[2022-10-24] MEDS: BUDESONIDE/FORMETEROL FUMARATE 160/4.5 mcg INHALER IH SCH (10:11)
[2022-10-24] MEDS: FAMOTIDINE 20 MG TABLET PO SCH (10:11)
[2022-10-24] MEDS: LISINOPRIL 10 MG TABLET PO SCH (10:11)
[2022-10-24] MEDS: CARVEDILOL 3.125 MG TABLET (FP) PO SCH (10:38)
[2022-10-24] MEDS: FLUTICASONE PROP 0.05% 16 GM NASAL SPRAY NS SCH (10:39)
== END 2022-10-24 10:30 | disposition home or self-care (01) | DRG 775 ==
LOC: YASAS 11:21 → Y6N 13:24
PROVIDERS: ADMIT Allergy & Immunology; ATTEND Surgery
PROC: HZ2ZZZZ Detoxification Services for Substance Abuse Treatment (ICD-10-PCS; principal; 2022-10-20)
DX: F10.230 Alcohol dependence with withdrawal, uncomplicated (principal); F12.20 Cannabis dependence, uncomplicated; F10.282 Alcohol dependence with alcohol-induced sleep disorder; F43.10 Post-traumatic stress disorder, unspecified; E78.00 Pure hypercholesterolemia, unspecified; I10 Essential (primary) hypertension; K21.9 Gastro-esophageal reflux disease without esophagitis; J43.1 Panlobular emphysema; R63.4 Abnormal weight loss; Z68.1 Body mass index [BMI] 19.9 or less, adult; I25.2 Old myocardial infarction; Z95.5 Presence of coronary angioplasty implant and graft; Z86.59 Personal history of other mental and behavioral disorders; Z87.820 Personal history of traumatic brain injury
CPT/HCPCS: 36415; 80053; 82607; 85027; 86780; 87811; C9803-CS; U0003; U0005

== ENCOUNTER 2022-10-27 13:23 | Inpatient (IN) | payer OTHER ==
[2022-10-27 14:40] VITALS: BMI 19.1
[2022-10-27] MEDS ORDERED: IBUPROFEN 400 MG TABLET (FP) PO PRN (19:58)
[2022-10-27] MEDS ORDERED: BENZONATATE 200 MG CAPSULE PO PRN (19:58)
[2022-10-27] MEDS ORDERED: ACETAMINOPHEN 325 MG TABLET (FP) PO PRN (19:58)
[2022-10-27] MEDS ORDERED: MAG HYDROX/AL HYDROX/SIMETH 30 ML UNIT-DOSE CUP PO PRN (19:58)
[2022-10-27] MEDS ORDERED: NALOXONE HCL (KLOXXADO) 8 MG SPRAY NS PRN (19:58)
[2022-10-27] MEDS ORDERED: COLLOIDAL OATMEAL 1 BAR EACH TP PRN (19:58)
[2022-10-27] MEDS ORDERED: LOPERAMIDE HCL 2 MG CAPSULE PO PRN (19:58)
[2022-10-27] MEDS ORDERED: BENZOCAINE/MENTHOL (CHLORASEPTIC ) LOZENGE MM PRN (19:58)
[2022-10-27] MEDS ORDERED: POLYETHYLENE GLYCOL (HEALTHYLAX) 3350 17 GM PACKET PO PRN (19:58)
[2022-10-27] MEDS ORDERED: guaiFENesin 600 MG TABLET.ER (FP) PO PRN (19:58)
[2022-10-27] MEDS ORDERED: IBUPROFEN 600 MG TABLET (FP) PO PRN (19:58)
[2022-10-27] MEDS ORDERED: NALOXONE HCL 0.4 MG/ML VIAL IM PRN (19:58)
[2022-10-27] MEDS ORDERED: AMMONIUM LACTATE 12% LOTION 225 GM BOTTLE TP PRN (19:58)
[2022-10-27] MEDS ORDERED: ALBUTEROL SO4 HFA INHALER IH PRN (20:15)
[2022-10-27] MEDS: THIAMINE HCL 100 MG TABLET (FP) PO SCH (21:12)
[2022-10-27] MEDS: MELATONIN 5 MG TABLETS PO SCH (21:12)
[2022-10-27] MEDS: ATORVASTATIN CA 10 MG TABLET (FP) PO SCH (21:13)
[2022-10-27] MEDS: FAMOTIDINE 20 MG TABLET PO SCH (21:13)
[2022-10-27] MEDS: CARVEDILOL 3.125 MG TABLET (FP) PO SCH (21:13)
[2022-10-27] MEDS: NICOTINE 10 MG CARTRIDGE (INHALER) IH PRN (21:14)
[2022-10-27] MEDS: BUDESONIDE/FORMETEROL FUMARATE 160/4.5 mcg INHALER IH SCH (21:14)
[2022-10-28] MEDS: PRENATAL VITAMINS W/ FOLIC ACID TABLET (FP) PO SCH (10:07)
[2022-10-28] MEDS: FAMOTIDINE 20 MG TABLET PO SCH ×2 (10:08→21:48)
[2022-10-28] MEDS: CARVEDILOL 3.125 MG TABLET (FP) PO SCH ×2 (10:09→21:48)
[2022-10-28] MEDS: LISINOPRIL 10 MG TABLET PO SCH (10:09)
[2022-10-28] MEDS: BUDESONIDE/FORMETEROL FUMARATE 160/4.5 mcg INHALER IH SCH ×2 (10:47→21:49)
[2022-10-28 11:13] LABS: POTASSIUM 5.1 mmol/L (3.5-5.1)
[2022-10-28 11:17] LABS: CALCIUM 9.4 mg/dL (8.5-10.1)
[2022-10-28 11:18] LABS: ALBUMIN 3.6 g/dl (3.4-5.0); BLOOD UREA NITROGEN 17.1 mg/dL (7-18)
[2022-10-28 11:20] LABS: CREATININE 0.9 mg/dL (0.55-1.3)
[2022-10-28 11:22] LABS: BILIRUBIN,TOTAL 0.6 mg/dL (0.2-1); TOT PROT 7.7 g/dl (6.4-8.2)
[2022-10-28 11:28] LABS: PH,URINE 5.5 (5.0-8.0); URINE APPEARANCE CLEAR; URINE BILIRUBIN NEGATIVE (NEGATIVE); URINE COLOR YELLOW; URINE GLUCOSE (UA) NEGATIVE (NEGATIVE); URINE KETONE NEGATIVE (NEGATIVE); URINE LEUK ESTERASE NEGATIVE (NEGATIVE); URINE NITRITE NEGATIVE (NEGATIVE); URINE PROTEIN NEGATIVE (NEGATIVE)
[2022-10-28 11:36] LABS: HEMATOCRIT 38.2 % (35.4-49); HEMOGLOBIN 12.3 GM/dL (11.7-16.9); MCHC 32.2 g/dl (32.0-35.9); MEAN CELL VOLUME 80.8 fl (80-96); MEAN PLT VOLUME 10.2 fl (7.5-11.1); PLATELET COUNT 215 10^3/uL (134-434); RBC 4.73 M/mm3 (4.00-5.60); RDW 15.2 % (11.9-15.9); WHITE BLOOD COUNT 4.4 K/mm3 (4.0-10.0)
[2022-10-28 11:39] LABS: SYPHILIS W/ RPR CONF NON-REACTIVE (NONREACTIVE)
[2022-10-28] MEDS: NICOTINE 10 MG CARTRIDGE (INHALER) IH PRN (17:15)
[2022-10-28] MEDS: MELATONIN 5 MG TABLETS PO SCH (21:47)
[2022-10-28] MEDS: THIAMINE HCL 100 MG TABLET (FP) PO SCH (21:47)
[2022-10-28] MEDS: ATORVASTATIN CA 10 MG TABLET (FP) PO SCH (21:48)
[2022-10-28] MEDS: hydrOXYzine PAMOATE 25 MG CAPSULE (FP) PO PRN (21:50)
[2022-10-29] MEDS: PRENATAL VITAMINS W/ FOLIC ACID TABLET (FP) PO SCH (10:52)
[2022-10-29] MEDS: BUDESONIDE/FORMETEROL FUMARATE 160/4.5 mcg INHALER IH SCH ×2 (10:53→22:01)
[2022-10-29] MEDS: LISINOPRIL 10 MG TABLET PO SCH (10:53)
[2022-10-29] MEDS: CARVEDILOL 3.125 MG TABLET (FP) PO SCH ×2 (10:53→22:01)
[2022-10-29] MEDS: FAMOTIDINE 20 MG TABLET PO SCH ×2 (10:54→22:01)
[2022-10-29] MEDS: NICOTINE 10 MG CARTRIDGE (INHALER) IH PRN (19:21)
[2022-10-29] MEDS: THIAMINE HCL 100 MG TABLET (FP) PO SCH (22:01)
[2022-10-29] MEDS: ATORVASTATIN CA 10 MG TABLET (FP) PO SCH (22:01)
[2022-10-29] MEDS: MELATONIN 5 MG TABLETS PO SCH (22:01)
[2022-10-30] MEDS: BUDESONIDE/FORMETEROL FUMARATE 160/4.5 mcg INHALER IH SCH ×2 (09:44→21:50)
[2022-10-30] MEDS: PRENATAL VITAMINS W/ FOLIC ACID TABLET (FP) PO SCH (09:44)
[2022-10-30] MEDS: CARVEDILOL 3.125 MG TABLET (FP) PO SCH ×2 (09:46→21:49)
[2022-10-30] MEDS: LISINOPRIL 10 MG TABLET PO SCH (09:47)
[2022-10-30] MEDS: FAMOTIDINE 20 MG TABLET PO SCH ×2 (09:47→21:51)
[2022-10-30] MEDS: NICOTINE 10 MG CARTRIDGE (INHALER) IH PRN (09:49)
[2022-10-30] MEDS: THIAMINE HCL 100 MG TABLET (FP) PO SCH (21:48)
[2022-10-30] MEDS: ATORVASTATIN CA 10 MG TABLET (FP) PO SCH (21:49)
[2022-10-30] MEDS: MELATONIN 5 MG TABLETS PO SCH (21:50)
[2022-10-30] MEDS: hydrOXYzine PAMOATE 25 MG CAPSULE (FP) PO PRN (21:50)
[2022-10-31] MEDS: BUDESONIDE/FORMETEROL FUMARATE 160/4.5 mcg INHALER IH SCH ×2 (10:31→21:05)
[2022-10-31] MEDS: PRENATAL VITAMINS W/ FOLIC ACID TABLET (FP) PO SCH (10:31)
[2022-10-31] MEDS: CARVEDILOL 3.125 MG TABLET (FP) PO SCH ×2 (10:31→21:04)
[2022-10-31] MEDS: FAMOTIDINE 20 MG TABLET PO SCH ×2 (10:31→21:04)
[2022-10-31] MEDS: LISINOPRIL 10 MG TABLET PO SCH (10:31)
[2022-10-31] MEDS: hydrOXYzine PAMOATE 25 MG CAPSULE (FP) PO PRN ×2 (10:32→21:05)
[2022-10-31] MEDS: NICOTINE 10 MG CARTRIDGE (INHALER) IH PRN (19:14)
[2022-10-31] MEDS: ATORVASTATIN CA 10 MG TABLET (FP) PO SCH (21:04)
[2022-10-31] MEDS: MELATONIN 5 MG TABLETS PO SCH (21:04)
[2022-10-31] MEDS: THIAMINE HCL 100 MG TABLET (FP) PO SCH (21:04)
[2022-11-01] MEDS: NICOTINE 10 MG CARTRIDGE (INHALER) IH PRN (06:54)
[2022-11-01] MEDS: PRENATAL VITAMINS W/ FOLIC ACID TABLET (FP) PO SCH (09:44)
[2022-11-01] MEDS: LISINOPRIL 10 MG TABLET PO SCH (09:44)
[2022-11-01] MEDS: BUDESONIDE/FORMETEROL FUMARATE 160/4.5 mcg INHALER IH SCH ×3 (09:44→21:35)
[2022-11-01] MEDS: CARVEDILOL 3.125 MG TABLET (FP) PO SCH ×2 (09:44→21:33)
[2022-11-01] MEDS: FAMOTIDINE 20 MG TABLET PO SCH ×2 (09:44→21:33)
[2022-11-01] MEDS: hydrOXYzine PAMOATE 25 MG CAPSULE (FP) PO PRN ×2 (09:45→21:34)
[2022-11-01] MEDS: NICOTINE 14 MG/24 HOURS TOPICAL PATCH TD SCH (11:04)
[2022-11-01] MEDS: MELATONIN 5 MG TABLETS PO SCH (21:32)
[2022-11-01] MEDS: THIAMINE HCL 100 MG TABLET (FP) PO SCH (21:32)
[2022-11-01] MEDS: ATORVASTATIN CA 10 MG TABLET (FP) PO SCH (21:33)
[2022-11-02] MEDS: LISINOPRIL 10 MG TABLET PO SCH (10:16)
[2022-11-02] MEDS: CARVEDILOL 3.125 MG TABLET (FP) PO SCH ×2 (10:16→21:09)
[2022-11-02] MEDS: NICOTINE 14 MG/24 HOURS TOPICAL PATCH TD SCH (10:16)
[2022-11-02] MEDS: FAMOTIDINE 20 MG TABLET PO SCH ×2 (10:16→21:09)
[2022-11-02] MEDS: PRENATAL VITAMINS W/ FOLIC ACID TABLET (FP) PO SCH (10:16)
[2022-11-02] MEDS: BUDESONIDE/FORMETEROL FUMARATE 160/4.5 mcg INHALER IH SCH ×2 (10:17→21:10)
[2022-11-02] MEDS: hydrOXYzine PAMOATE 25 MG CAPSULE (FP) PO PRN ×2 (10:18→21:10)
[2022-11-02] MEDS: MELATONIN 5 MG TABLETS PO SCH (21:09)
[2022-11-02] MEDS: ATORVASTATIN CA 10 MG TABLET (FP) PO SCH (21:09)
[2022-11-02] MEDS: THIAMINE HCL 100 MG TABLET (FP) PO SCH (21:09)
[2022-11-02] MEDS: NICOTINE 10 MG CARTRIDGE (INHALER) IH PRN (21:10)
[2022-11-03] MEDS: PRENATAL VITAMINS W/ FOLIC ACID TABLET (FP) PO SCH (09:56)
[2022-11-03] MEDS: FAMOTIDINE 20 MG TABLET PO SCH ×2 (09:56→21:28)
[2022-11-03] MEDS: CARVEDILOL 3.125 MG TABLET (FP) PO SCH ×2 (09:57→21:28)
[2022-11-03] MEDS: NICOTINE 14 MG/24 HOURS TOPICAL PATCH TD SCH (09:57)
[2022-11-03] MEDS: LISINOPRIL 10 MG TABLET PO SCH (09:58)
[2022-11-03] MEDS: hydrOXYzine PAMOATE 25 MG CAPSULE (FP) PO PRN ×2 (09:58→21:28)
[2022-11-03] MEDS: BUDESONIDE/FORMETEROL FUMARATE 160/4.5 mcg INHALER IH SCH ×2 (09:59→21:29)
[2022-11-03] MEDS: ATORVASTATIN CA 10 MG TABLET (FP) PO SCH (21:28)
[2022-11-03] MEDS: THIAMINE HCL 100 MG TABLET (FP) PO SCH (21:28)
[2022-11-03] MEDS: MELATONIN 5 MG TABLETS PO SCH (21:28)
[2022-11-03] MEDS: NICOTINE 10 MG CARTRIDGE (INHALER) IH PRN (21:29)
[2022-11-04] MEDS ORDERED: CYANOCOBALAMIN (VITAMIN B-12) 1000 MCG/1 ML VIAL IM SCH (10:00)
[2022-11-04] MEDS: CARVEDILOL 3.125 MG TABLET (FP) PO SCH ×2 (10:18→21:51)
[2022-11-04] MEDS: FAMOTIDINE 20 MG TABLET PO SCH ×2 (10:18→21:51)
[2022-11-04] MEDS: PRENATAL VITAMINS W/ FOLIC ACID TABLET (FP) PO SCH (10:18)
[2022-11-04] MEDS: LISINOPRIL 10 MG TABLET PO SCH (10:18)
[2022-11-04] MEDS: hydrOXYzine PAMOATE 25 MG CAPSULE (FP) PO PRN ×2 (10:19→21:52)
[2022-11-04] MEDS: NICOTINE 14 MG/24 HOURS TOPICAL PATCH TD SCH (10:19)
[2022-11-04] MEDS: BUDESONIDE/FORMETEROL FUMARATE 160/4.5 mcg INHALER IH SCH ×2 (10:21→21:51)
[2022-11-04] MEDS: THIAMINE HCL 100 MG TABLET (FP) PO SCH (21:51)
[2022-11-04] MEDS: ATORVASTATIN CA 10 MG TABLET (FP) PO SCH (21:51)
[2022-11-04] MEDS: MELATONIN 5 MG TABLETS PO SCH (21:52)
[2022-11-05] MEDS: FAMOTIDINE 20 MG TABLET PO SCH ×2 (09:27→21:26)
[2022-11-05] MEDS: LISINOPRIL 10 MG TABLET PO SCH (09:27)
[2022-11-05] MEDS: PRENATAL VITAMINS W/ FOLIC ACID TABLET (FP) PO SCH (09:27)
[2022-11-05] MEDS: NICOTINE 14 MG/24 HOURS TOPICAL PATCH TD SCH (09:27)
[2022-11-05] MEDS: hydrOXYzine PAMOATE 25 MG CAPSULE (FP) PO PRN ×2 (09:29→21:26)
[2022-11-05] MEDS: CARVEDILOL 3.125 MG TABLET (FP) PO SCH ×2 (09:29→21:26)
[2022-11-05] MEDS: BUDESONIDE/FORMETEROL FUMARATE 160/4.5 mcg INHALER IH SCH ×2 (09:29→21:26)
[2022-11-05] MEDS: ATORVASTATIN CA 10 MG TABLET (FP) PO SCH (21:26)
[2022-11-05] MEDS: MELATONIN 5 MG TABLETS PO SCH (21:26)
[2022-11-05] MEDS: THIAMINE HCL 100 MG TABLET (FP) PO SCH (21:26)
[2022-11-06] MEDS: BUDESONIDE/FORMETEROL FUMARATE 160/4.5 mcg INHALER IH SCH ×2 (10:21→22:17)
[2022-11-06] MEDS: FAMOTIDINE 20 MG TABLET PO SCH ×2 (10:21→22:16)
[2022-11-06] MEDS: NICOTINE 14 MG/24 HOURS TOPICAL PATCH TD SCH (10:21)
[2022-11-06] MEDS: LISINOPRIL 10 MG TABLET PO SCH (10:21)
[2022-11-06] MEDS: CARVEDILOL 3.125 MG TABLET (FP) PO SCH ×2 (10:21→22:16)
[2022-11-06] MEDS: PRENATAL VITAMINS W/ FOLIC ACID TABLET (FP) PO SCH (10:21)
[2022-11-06] MEDS: hydrOXYzine PAMOATE 25 MG CAPSULE (FP) PO PRN ×2 (10:26→22:16)
[2022-11-06] MEDS: MELATONIN 5 MG TABLETS PO SCH (22:16)
[2022-11-06] MEDS: THIAMINE HCL 100 MG TABLET (FP) PO SCH (22:16)
[2022-11-06] MEDS: ATORVASTATIN CA 10 MG TABLET (FP) PO SCH (22:16)
[2022-11-07] MEDS: FAMOTIDINE 20 MG TABLET PO SCH ×2 (09:41→21:22)
[2022-11-07] MEDS: PRENATAL VITAMINS W/ FOLIC ACID TABLET (FP) PO SCH (09:41)
[2022-11-07] MEDS: NICOTINE 14 MG/24 HOURS TOPICAL PATCH TD SCH (09:42)
[2022-11-07] MEDS: CYANOCOBALAMIN (VITAMIN B-12) 1000 MCG/1 ML VIAL IM SCH (09:43)
[2022-11-07] MEDS: BUDESONIDE/FORMETEROL FUMARATE 160/4.5 mcg INHALER IH SCH ×2 (09:45→21:24)
[2022-11-07] MEDS: LISINOPRIL 10 MG TABLET PO SCH (09:45)
[2022-11-07] MEDS: CARVEDILOL 3.125 MG TABLET (FP) PO SCH ×2 (11:19→21:22)
[2022-11-07] MEDS: ATORVASTATIN CA 10 MG TABLET (FP) PO SCH (21:22)
[2022-11-07] MEDS: MELATONIN 5 MG TABLETS PO SCH (21:22)
[2022-11-07] MEDS: THIAMINE HCL 100 MG TABLET (FP) PO SCH (21:22)
[2022-11-07] MEDS: hydrOXYzine PAMOATE 25 MG CAPSULE (FP) PO PRN (21:23)
[2022-11-08] MEDS: BUDESONIDE/FORMETEROL FUMARATE 160/4.5 mcg INHALER IH SCH ×2 (10:21→21:02)
[2022-11-08] MEDS: LISINOPRIL 10 MG TABLET PO SCH ×2 (10:22→10:47)
[2022-11-08] MEDS: FAMOTIDINE 20 MG TABLET PO SCH ×3 (10:22→21:01)
[2022-11-08] MEDS: NICOTINE 14 MG/24 HOURS TOPICAL PATCH TD SCH (10:22)
[2022-11-08] MEDS: CARVEDILOL 3.125 MG TABLET (FP) PO SCH ×3 (10:22→21:02)
[2022-11-08] MEDS: PRENATAL VITAMINS W/ FOLIC ACID TABLET (FP) PO SCH (10:22)
[2022-11-08] MEDS: hydrOXYzine PAMOATE 25 MG CAPSULE (FP) PO PRN ×2 (10:45→21:03)
[2022-11-08] MEDS: ATORVASTATIN CA 10 MG TABLET (FP) PO SCH (21:01)
[2022-11-08] MEDS: THIAMINE HCL 100 MG TABLET (FP) PO SCH (21:02)
[2022-11-08] MEDS: MELATONIN 5 MG TABLETS PO SCH (21:02)
[2022-11-09] MEDS: FAMOTIDINE 20 MG TABLET PO SCH ×2 (09:45→21:43)
[2022-11-09] MEDS: NICOTINE 14 MG/24 HOURS TOPICAL PATCH TD SCH (09:45)
[2022-11-09] MEDS: CARVEDILOL 3.125 MG TABLET (FP) PO SCH ×2 (09:45→21:43)
[2022-11-09] MEDS: PRENATAL VITAMINS W/ FOLIC ACID TABLET (FP) PO SCH (09:45)
[2022-11-09] MEDS: BUDESONIDE/FORMETEROL FUMARATE 160/4.5 mcg INHALER IH SCH ×2 (09:45→21:44)
[2022-11-09] MEDS: LISINOPRIL 10 MG TABLET PO SCH (09:45)
[2022-11-09] MEDS: hydrOXYzine PAMOATE 25 MG CAPSULE (FP) PO PRN ×2 (09:46→21:43)
[2022-11-09 10:53] LABS: POTASSIUM 4.8 mmol/L (3.5-5.1)
[2022-11-09 11:01] LABS: ALBUMIN 3.7 g/dl (3.4-5.0); CALCIUM 9.5 mg/dL (8.5-10.1)
[2022-11-09 11:02] LABS: BLOOD UREA NITROGEN 16.3 mg/dL (7-18)
[2022-11-09 11:05] LABS: CREATININE 0.9 mg/dL (0.55-1.3)
[2022-11-09 11:07] LABS: BILIRUBIN,TOTAL 0.5 mg/dL (0.2-1); TOT PROT 7.7 g/dl (6.4-8.2)
[2022-11-09] MEDS: ATORVASTATIN CA 10 MG TABLET (FP) PO SCH (21:42)
[2022-11-09] MEDS: THIAMINE HCL 100 MG TABLET (FP) PO SCH (21:43)
[2022-11-09] MEDS: MELATONIN 5 MG TABLETS PO SCH (21:43)
[2022-11-10] MEDS: NICOTINE 14 MG/24 HOURS TOPICAL PATCH TD SCH (10:40)
[2022-11-10] MEDS: PRENATAL VITAMINS W/ FOLIC ACID TABLET (FP) PO SCH (10:40)
[2022-11-10] MEDS: BUDESONIDE/FORMETEROL FUMARATE 160/4.5 mcg INHALER IH SCH ×2 (10:40→21:15)
[2022-11-10] MEDS: FAMOTIDINE 20 MG TABLET PO SCH ×2 (10:41→21:14)
[2022-11-10] MEDS: LISINOPRIL 10 MG TABLET PO SCH (10:41)
[2022-11-10] MEDS: hydrOXYzine PAMOATE 25 MG CAPSULE (FP) PO PRN ×2 (10:41→21:13)
[2022-11-10] MEDS: CARVEDILOL 3.125 MG TABLET (FP) PO SCH ×2 (10:42→21:15)
[2022-11-10] MEDS: ATORVASTATIN CA 10 MG TABLET (FP) PO SCH (21:14)
[2022-11-10] MEDS: THIAMINE HCL 100 MG TABLET (FP) PO SCH (21:15)
[2022-11-10] MEDS: MELATONIN 5 MG TABLETS PO SCH (21:15)
[2022-11-11] MEDS: PRENATAL VITAMINS W/ FOLIC ACID TABLET (FP) PO SCH (09:43)
[2022-11-11] MEDS: LISINOPRIL 10 MG TABLET PO SCH (09:43)
[2022-11-11] MEDS: FAMOTIDINE 20 MG TABLET PO SCH ×2 (09:44→21:32)
[2022-11-11] MEDS: NICOTINE 14 MG/24 HOURS TOPICAL PATCH TD SCH (09:44)
[2022-11-11] MEDS: CARVEDILOL 3.125 MG TABLET (FP) PO SCH ×2 (09:44→21:32)
[2022-11-11] MEDS: hydrOXYzine PAMOATE 25 MG CAPSULE (FP) PO PRN ×2 (09:45→16:36)
[2022-11-11] MEDS: BUDESONIDE/FORMETEROL FUMARATE 160/4.5 mcg INHALER IH SCH ×2 (09:45→21:33)
[2022-11-11 11:33] LABS: INR 1.18 (0.83-1.09); PROTHROMBIN TIME (PATIENT) 13.7 SEC (9.7-13.0)
[2022-11-11 12:50] LABS: POTASSIUM 4.5 mmol/L (3.5-5.1)
[2022-11-11 12:52] LABS: CALCIUM 9.1 mg/dL (8.5-10.1)
[2022-11-11 12:53] LABS: ALBUMIN 3.4 g/dl (3.4-5.0); BLOOD UREA NITROGEN 18.1 mg/dL (7-18)
[2022-11-11 12:56] LABS: CREATININE 0.8 mg/dL (0.55-1.3)
[2022-11-11 12:57] LABS: BILIRUBIN,TOTAL 0.6 mg/dL (0.2-1)
[2022-11-11 12:58] LABS: TOT PROT 7.2 g/dl (6.4-8.2)
[2022-11-11] MEDS: ATORVASTATIN CA 10 MG TABLET (FP) PO SCH (21:32)
[2022-11-11] MEDS: THIAMINE HCL 100 MG TABLET (FP) PO SCH (21:32)
[2022-11-11] MEDS: MELATONIN 5 MG TABLETS PO SCH (21:33)
[2022-11-12] MEDS: PRENATAL VITAMINS W/ FOLIC ACID TABLET (FP) PO SCH (10:11)
[2022-11-12] MEDS: FAMOTIDINE 20 MG TABLET PO SCH ×2 (10:12→21:29)
[2022-11-12] MEDS: CARVEDILOL 3.125 MG TABLET (FP) PO SCH ×2 (10:12→21:29)
[2022-11-12] MEDS: NICOTINE 14 MG/24 HOURS TOPICAL PATCH TD SCH (10:12)
[2022-11-12] MEDS: BUDESONIDE/FORMETEROL FUMARATE 160/4.5 mcg INHALER IH SCH ×2 (10:14→21:31)
[2022-11-12] MEDS: LISINOPRIL 10 MG TABLET PO SCH (10:14)
[2022-11-12] MEDS: MAGNESIUM HYDROX 2400MG/30ML ORAL SUSPENSION 30 ML CUP PO PRN (12:48)
[2022-11-12] MEDS: hydrOXYzine PAMOATE 25 MG CAPSULE (FP) PO PRN ×2 (12:49→21:29)
[2022-11-12] MEDS: ACAMPROSATE CALCIUM 333 MG TABLET.DR PO SCH ×2 (13:59→21:30)
[2022-11-12] MEDS: THIAMINE HCL 100 MG TABLET (FP) PO SCH (21:29)
[2022-11-12] MEDS: ATORVASTATIN CA 10 MG TABLET (FP) PO SCH (21:30)
[2022-11-12] MEDS: MELATONIN 5 MG TABLETS PO SCH (21:31)
[2022-11-13] MEDS: ACAMPROSATE CALCIUM 333 MG TABLET.DR PO SCH ×3 (06:34→22:06)
[2022-11-13] MEDS: FAMOTIDINE 20 MG TABLET PO SCH ×2 (09:31→21:53)
[2022-11-13] MEDS: NICOTINE 14 MG/24 HOURS TOPICAL PATCH TD SCH (09:31)
[2022-11-13] MEDS: PRENATAL VITAMINS W/ FOLIC ACID TABLET (FP) PO SCH (09:31)
[2022-11-13] MEDS: hydrOXYzine PAMOATE 25 MG CAPSULE (FP) PO PRN ×2 (09:31→21:56)
[2022-11-13] MEDS: CARVEDILOL 3.125 MG TABLET (FP) PO SCH ×2 (09:31→21:53)
[2022-11-13] MEDS: BUDESONIDE/FORMETEROL FUMARATE 160/4.5 mcg INHALER IH SCH ×2 (09:32→21:54)
[2022-11-13] MEDS: LISINOPRIL 10 MG TABLET PO SCH (09:32)
[2022-11-13] MEDS: MAGNESIUM HYDROX 2400MG/30ML ORAL SUSPENSION 30 ML CUP PO PRN (11:42)
[2022-11-13] MEDS: ATORVASTATIN CA 10 MG TABLET (FP) PO SCH (21:54)
[2022-11-13] MEDS: THIAMINE HCL 100 MG TABLET (FP) PO SCH (21:54)
[2022-11-13] MEDS: MELATONIN 5 MG TABLETS PO SCH (21:54)
[2022-11-14] MEDS: ACAMPROSATE CALCIUM 333 MG TABLET.DR PO SCH ×3 (06:25→21:02)
[2022-11-14] MEDS: NICOTINE 14 MG/24 HOURS TOPICAL PATCH TD SCH (10:20)
[2022-11-14] MEDS: LISINOPRIL 10 MG TABLET PO SCH (10:21)
[2022-11-14] MEDS: CARVEDILOL 3.125 MG TABLET (FP) PO SCH ×2 (10:21→21:02)
[2022-11-14] MEDS: FAMOTIDINE 20 MG TABLET PO SCH ×2 (10:21→21:02)
[2022-11-14] MEDS: BUDESONIDE/FORMETEROL FUMARATE 160/4.5 mcg INHALER IH SCH ×2 (10:21→21:02)
[2022-11-14] MEDS: PRENATAL VITAMINS W/ FOLIC ACID TABLET (FP) PO SCH (10:21)
[2022-11-14] MEDS: CYANOCOBALAMIN (VITAMIN B-12) 1000 MCG/1 ML VIAL IM SCH (10:22)
[2022-11-14] MEDS: ATORVASTATIN CA 10 MG TABLET (FP) PO SCH (21:02)
[2022-11-14] MEDS: MELATONIN 5 MG TABLETS PO SCH (21:02)
[2022-11-14] MEDS: THIAMINE HCL 100 MG TABLET (FP) PO SCH (21:02)
[2022-11-14] MEDS: hydrOXYzine PAMOATE 25 MG CAPSULE (FP) PO PRN (21:03)
[2022-11-15] MEDS: ACAMPROSATE CALCIUM 333 MG TABLET.DR PO SCH ×3 (06:33→21:22)
[2022-11-15] MEDS: PRENATAL VITAMINS W/ FOLIC ACID TABLET (FP) PO SCH (09:36)
[2022-11-15] MEDS: FAMOTIDINE 20 MG TABLET PO SCH ×2 (09:36→21:22)
[2022-11-15] MEDS: BUDESONIDE/FORMETEROL FUMARATE 160/4.5 mcg INHALER IH SCH ×2 (09:37→21:22)
[2022-11-15] MEDS: LISINOPRIL 10 MG TABLET PO SCH (09:37)
[2022-11-15] MEDS: CARVEDILOL 3.125 MG TABLET (FP) PO SCH ×2 (09:37→21:23)
[2022-11-15] MEDS: NICOTINE 14 MG/24 HOURS TOPICAL PATCH TD SCH (09:37)
[2022-11-15] MEDS: hydrOXYzine PAMOATE 25 MG CAPSULE (FP) PO PRN ×2 (09:38→21:24)
[2022-11-15] MEDS: THIAMINE HCL 100 MG TABLET (FP) PO SCH (21:21)
[2022-11-15] MEDS: ATORVASTATIN CA 10 MG TABLET (FP) PO SCH (21:22)
[2022-11-15] MEDS: SUVOREXANT 10 MG TABLET PO PRN (21:23)
[2022-11-16] MEDS: ACAMPROSATE CALCIUM 333 MG TABLET.DR PO SCH ×3 (06:58→21:02)
[2022-11-16] MEDS: FAMOTIDINE 20 MG TABLET PO SCH ×2 (10:22→21:02)
[2022-11-16] MEDS: CARVEDILOL 3.125 MG TABLET (FP) PO SCH ×2 (10:22→21:02)
[2022-11-16] MEDS: PRENATAL VITAMINS W/ FOLIC ACID TABLET (FP) PO SCH (10:22)
[2022-11-16] MEDS: LISINOPRIL 10 MG TABLET PO SCH (10:23)
[2022-11-16] MEDS: BUDESONIDE/FORMETEROL FUMARATE 160/4.5 mcg INHALER IH SCH ×2 (10:23→21:04)
[2022-11-16] MEDS: NICOTINE 14 MG/24 HOURS TOPICAL PATCH TD SCH (10:23)
[2022-11-16] MEDS: hydrOXYzine PAMOATE 25 MG CAPSULE (FP) PO PRN ×2 (10:24→21:03)
[2022-11-16] MEDS: NICOTINE 10 MG CARTRIDGE (INHALER) IH PRN (10:25)
[2022-11-16] MEDS: ATORVASTATIN CA 10 MG TABLET (FP) PO SCH (21:02)
[2022-11-16] MEDS: THIAMINE HCL 100 MG TABLET (FP) PO SCH (21:02)
[2022-11-16] MEDS: SUVOREXANT 10 MG TABLET PO PRN (21:03)
[2022-11-17] MEDS: ACAMPROSATE CALCIUM 333 MG TABLET.DR PO SCH ×3 (06:27→21:17)
[2022-11-17] MEDS: NICOTINE 14 MG/24 HOURS TOPICAL PATCH TD SCH (09:54)
[2022-11-17] MEDS: BUDESONIDE/FORMETEROL FUMARATE 160/4.5 mcg INHALER IH SCH ×2 (09:54→21:17)
[2022-11-17] MEDS: NICOTINE 10 MG CARTRIDGE (INHALER) IH PRN (09:55)
[2022-11-17] MEDS: CARVEDILOL 3.125 MG TABLET (FP) PO SCH ×2 (09:55→21:19)
[2022-11-17] MEDS: LISINOPRIL 10 MG TABLET PO SCH (09:55)
[2022-11-17] MEDS: FAMOTIDINE 20 MG TABLET PO SCH ×2 (09:55→21:17)
[2022-11-17] MEDS: PRENATAL VITAMINS W/ FOLIC ACID TABLET (FP) PO SCH (09:55)
[2022-11-17] MEDS: hydrOXYzine PAMOATE 25 MG CAPSULE (FP) PO PRN ×2 (09:56→21:19)
[2022-11-17] MEDS: THIAMINE HCL 100 MG TABLET (FP) PO SCH (21:16)
[2022-11-17] MEDS: ATORVASTATIN CA 10 MG TABLET (FP) PO SCH (21:17)
[2022-11-17] MEDS: SUVOREXANT 10 MG TABLET PO PRN (21:18)
[2022-11-18] MEDS: ACAMPROSATE CALCIUM 333 MG TABLET.DR PO SCH ×3 (06:01→21:58)
[2022-11-18] MEDS: FAMOTIDINE 20 MG TABLET PO SCH ×2 (10:16→21:59)
[2022-11-18] MEDS: PRENATAL VITAMINS W/ FOLIC ACID TABLET (FP) PO SCH (10:16)
[2022-11-18] MEDS: hydrOXYzine PAMOATE 25 MG CAPSULE (FP) PO PRN ×2 (10:17→22:00)
[2022-11-18] MEDS: BUDESONIDE/FORMETEROL FUMARATE 160/4.5 mcg INHALER IH SCH ×2 (10:18→21:58)
[2022-11-18] MEDS: NICOTINE 10 MG CARTRIDGE (INHALER) IH PRN (10:18)
[2022-11-18] MEDS: CARVEDILOL 3.125 MG TABLET (FP) PO SCH ×2 (10:19→21:59)
[2022-11-18] MEDS: NICOTINE 14 MG/24 HOURS TOPICAL PATCH TD SCH (10:19)
[2022-11-18] MEDS: LISINOPRIL 10 MG TABLET PO SCH (10:19)
[2022-11-18] MEDS: THIAMINE HCL 100 MG TABLET (FP) PO SCH (21:59)
[2022-11-18] MEDS: ATORVASTATIN CA 10 MG TABLET (FP) PO SCH (21:59)
[2022-11-18] MEDS: SUVOREXANT 10 MG TABLET PO PRN (22:01)
[2022-11-18 22:23] VITALS: RESP 18
[2022-11-19] MEDS: ACAMPROSATE CALCIUM 333 MG TABLET.DR PO SCH ×3 (06:05→21:30)
[2022-11-19] MEDS: LISINOPRIL 10 MG TABLET PO SCH (09:45)
[2022-11-19] MEDS: PRENATAL VITAMINS W/ FOLIC ACID TABLET (FP) PO SCH (09:45)
[2022-11-19] MEDS: FAMOTIDINE 20 MG TABLET PO SCH ×2 (09:45→21:30)
[2022-11-19] MEDS: CARVEDILOL 3.125 MG TABLET (FP) PO SCH ×2 (09:45→21:30)
[2022-11-19] MEDS: hydrOXYzine PAMOATE 25 MG CAPSULE (FP) PO PRN ×2 (09:46→21:31)
[2022-11-19] MEDS: BUDESONIDE/FORMETEROL FUMARATE 160/4.5 mcg INHALER IH SCH ×2 (09:47→21:32)
[2022-11-19] MEDS: NICOTINE 14 MG/24 HOURS TOPICAL PATCH TD SCH (10:40)
[2022-11-19] MEDS: THIAMINE HCL 100 MG TABLET (FP) PO SCH (21:30)
[2022-11-19] MEDS: ATORVASTATIN CA 10 MG TABLET (FP) PO SCH (21:30)
[2022-11-19] MEDS: SUVOREXANT 10 MG TABLET PO PRN (21:31)
[2022-11-20] MEDS: ACAMPROSATE CALCIUM 333 MG TABLET.DR PO SCH ×3 (05:52→21:20)
[2022-11-20] MEDS: NICOTINE 14 MG/24 HOURS TOPICAL PATCH TD SCH (11:03)
[2022-11-20] MEDS: FAMOTIDINE 20 MG TABLET PO SCH ×2 (11:03→21:20)
[2022-11-20] MEDS: LISINOPRIL 10 MG TABLET PO SCH (11:03)
[2022-11-20] MEDS: CARVEDILOL 3.125 MG TABLET (FP) PO SCH ×2 (11:04→21:20)
[2022-11-20] MEDS: PRENATAL VITAMINS W/ FOLIC ACID TABLET (FP) PO SCH (11:04)
[2022-11-20] MEDS: BUDESONIDE/FORMETEROL FUMARATE 160/4.5 mcg INHALER IH SCH ×2 (11:05→21:20)
[2022-11-20] MEDS: NICOTINE 10 MG CARTRIDGE (INHALER) IH PRN (11:06)
[2022-11-20] MEDS: THIAMINE HCL 100 MG TABLET (FP) PO SCH (21:19)
[2022-11-20] MEDS: ATORVASTATIN CA 10 MG TABLET (FP) PO SCH (21:20)
[2022-11-20] MEDS: hydrOXYzine PAMOATE 25 MG CAPSULE (FP) PO PRN (21:22)
[2022-11-20] MEDS: SUVOREXANT 10 MG TABLET PO PRN (23:35)
[2022-11-21] MEDS: ACAMPROSATE CALCIUM 333 MG TABLET.DR PO SCH ×3 (06:38→21:44)
[2022-11-21] MEDS: LISINOPRIL 10 MG TABLET PO SCH (09:54)
[2022-11-21] MEDS: PRENATAL VITAMINS W/ FOLIC ACID TABLET (FP) PO SCH (09:54)
[2022-11-21] MEDS: FAMOTIDINE 20 MG TABLET PO SCH ×2 (09:54→21:43)
[2022-11-21] MEDS: NICOTINE 14 MG/24 HOURS TOPICAL PATCH TD SCH (09:54)
[2022-11-21] MEDS: CARVEDILOL 3.125 MG TABLET (FP) PO SCH ×2 (09:54→21:43)
[2022-11-21] MEDS: CYANOCOBALAMIN (VITAMIN B-12) 1000 MCG/1 ML VIAL IM SCH (09:55)
[2022-11-21] MEDS: BUDESONIDE/FORMETEROL FUMARATE 160/4.5 mcg INHALER IH SCH ×2 (09:56→21:44)
[2022-11-21] MEDS: hydrOXYzine PAMOATE 25 MG CAPSULE (FP) PO PRN ×2 (09:57→21:46)
[2022-11-21] MEDS: ASPIRIN COATED 81 MG TABLET.EC PO SCH (12:27)
[2022-11-21] MEDS: THIAMINE HCL 100 MG TABLET (FP) PO SCH (21:43)
[2022-11-21] MEDS: ATORVASTATIN CA 10 MG TABLET (FP) PO SCH (21:43)
[2022-11-21] MEDS: SUVOREXANT 10 MG TABLET PO PRN (21:46)
[2022-11-22] MEDS: hydrOXYzine PAMOATE 25 MG CAPSULE (FP) PO PRN ×2 (06:24→21:38)
[2022-11-22] MEDS: ACAMPROSATE CALCIUM 333 MG TABLET.DR PO SCH ×3 (06:24→21:37)
[2022-11-22] MEDS: LISINOPRIL 10 MG TABLET PO SCH (10:12)
[2022-11-22] MEDS: NICOTINE 14 MG/24 HOURS TOPICAL PATCH TD SCH (10:12)
[2022-11-22] MEDS: CARVEDILOL 3.125 MG TABLET (FP) PO SCH ×2 (10:12→21:37)
[2022-11-22] MEDS: FAMOTIDINE 20 MG TABLET PO SCH ×2 (10:12→21:37)
[2022-11-22] MEDS: ASPIRIN COATED 81 MG TABLET.EC PO SCH (10:12)
[2022-11-22] MEDS: PRENATAL VITAMINS W/ FOLIC ACID TABLET (FP) PO SCH (10:12)
[2022-11-22] MEDS: BUDESONIDE/FORMETEROL FUMARATE 160/4.5 mcg INHALER IH SCH ×2 (10:13→21:38)
[2022-11-22 11:39] LABS: HEMATOCRIT 35.1 % (35.4-49); HEMOGLOBIN 11.4 GM/dL (11.7-16.9); MCH 25.8 pg (25.7-33.7); MCHC 32.4 g/dl (32.0-35.9); MEAN CELL VOLUME 79.6 fl (80-96); MEAN PLT VOLUME 11.8 fl (7.5-11.1); PLATELET COUNT 153 10^3/uL (134-434); RBC 4.41 M/mm3 (4.00-5.60); RDW 14.5 % (11.9-15.9)
[2022-11-22 11:43] LABS: POTASSIUM 4.1 mmol/L (3.5-5.1)
[2022-11-22 11:49] LABS: INR 1.16 (0.83-1.09); PROTHROMBIN TIME (PATIENT) 13.4 SEC (9.7-13.0)
[2022-11-22 11:58] LABS: CALCIUM 8.8 mg/dL (8.5-10.1)
[2022-11-22 11:59] LABS: ALBUMIN 3.3 g/dl (3.4-5.0); BLOOD UREA NITROGEN 15.7 mg/dL (7-18)
[2022-11-22 12:02] LABS: CREATININE 0.8 mg/dL (0.55-1.3)
[2022-11-22 12:04] LABS: TOT PROT 6.6 g/dl (6.4-8.2)
[2022-11-22 12:05] LABS: BILIRUBIN,TOTAL 0.6 mg/dL (0.2-1)
[2022-11-22] MEDS: NICOTINE 10 MG CARTRIDGE (INHALER) IH PRN (12:30)
[2022-11-22] MEDS: THIAMINE HCL 100 MG TABLET (FP) PO SCH (21:37)
[2022-11-22] MEDS: ATORVASTATIN CA 10 MG TABLET (FP) PO SCH (21:37)
[2022-11-22] MEDS: SUVOREXANT 10 MG TABLET PO PRN (21:38)
[2022-11-23] MEDS: ACAMPROSATE CALCIUM 333 MG TABLET.DR PO SCH (05:52)
[2022-11-23 06:42] VITALS: BP 132/81; PULSE 61; TEMP 98
[2022-11-23] MEDS: FAMOTIDINE 20 MG TABLET PO SCH (09:18)
[2022-11-23] MEDS: BUDESONIDE/FORMETEROL FUMARATE 160/4.5 mcg INHALER IH SCH (09:18)
[2022-11-23] MEDS: ASPIRIN COATED 81 MG TABLET.EC PO SCH (09:18)
[2022-11-23] MEDS: PRENATAL VITAMINS W/ FOLIC ACID TABLET (FP) PO SCH (09:18)
[2022-11-23] MEDS: LISINOPRIL 10 MG TABLET PO SCH (09:18)
[2022-11-23] MEDS: NICOTINE 14 MG/24 HOURS TOPICAL PATCH TD SCH (09:18)
[2022-11-23] MEDS: CARVEDILOL 3.125 MG TABLET (FP) PO SCH (09:18)
[2022-11-23] MEDS: hydrOXYzine PAMOATE 25 MG CAPSULE (FP) PO PRN (09:19)
== END 2022-11-23 09:58 | disposition home or self-care (01) | DRG 58 ==
LOC: YASAS 13:23 → Y3W 19:43
PROVIDERS: ADMIT Allergy & Immunology; ATTEND Psychiatry & Neurology Pain Medicine
PROC: HZ42ZZZ Group Counseling for Substance Abuse Treatment, Cognitive-Behavioral (ICD-10-PCS; principal; 2022-10-27)
DX: F10.282 Alcohol dependence with alcohol-induced sleep disorder (principal); F10.24 Alcohol dependence with alcohol-induced mood disorder; F32.9 Major depressive disorder, single episode, unspecified; E72.20 Disorder of urea cycle metabolism, unspecified; I25.10 Atherosclerotic heart disease of native coronary artery without angina pectoris; I10 Essential (primary) hypertension; I25.2 Old myocardial infarction; Z95.5 Presence of coronary angioplasty implant and graft; J43.1 Panlobular emphysema; K21.9 Gastro-esophageal reflux disease without esophagitis; K70.10 Alcoholic hepatitis without ascites; R07.9 Chest pain, unspecified; R63.4 Abnormal weight loss; Z68.1 Body mass index [BMI] 19.9 or less, adult; Z87.891 Personal history of nicotine dependence; Z86.19 Personal history of other infectious and parasitic diseases
CPT/HCPCS: 36415; 80053; 81003; 82140; 83036; 85027; 85610; 86780; 86803; C9803-CS; U0003; U0005

== ENCOUNTER 2023-04-24 14:42 | Inpatient (IN) | payer OTHER ==
[2023-04-24 15:02] VITALS: BMI 19.5
[2023-04-24] MEDS ORDERED: MAG HYDROX/AL HYDROX/SIMETH 30 ML UNIT-DOSE CUP PO PRN (15:56)
[2023-04-24] MEDS ORDERED: NALOXONE HCL 0.4 MG/ML VIAL IM PRN (15:56)
[2023-04-24] MEDS ORDERED: LOPERAMIDE HCL 2 MG CAPSULE PO PRN (15:56)
[2023-04-24] MEDS ORDERED: LORazepam 1 MG TABLET PO PRN (15:56)
[2023-04-24] MEDS ORDERED: ACETAMINOPHEN 325 MG TABLET (FP) PO PRN (15:56)
[2023-04-24] MEDS ORDERED: guaiFENesin 600 MG TABLET.ER (FP) PO PRN (15:56)
[2023-04-24] MEDS ORDERED: IBUPROFEN 600 MG TABLET (FP) PO PRN (15:56)
[2023-04-24] MEDS ORDERED: BISMUTH SUBSALICYLATE 524 MG/30 ML PO PRN (15:56)
[2023-04-24] MEDS ORDERED: BENZOCAINE/MENTHOL (CHLORASEPTIC ) LOZENGE MM PRN (15:56)
[2023-04-24] MEDS ORDERED: POLYETHYLENE GLYCOL (HEALTHYLAX) 3350 17 GM PACKET PO PRN (15:56)
[2023-04-24] MEDS ORDERED: IBUPROFEN 400 MG TABLET (FP) PO PRN (15:56)
[2023-04-24] MEDS ORDERED: ONDANSETRON *ODT* 4 MG TABLET SL PRN (15:56)
[2023-04-24] MEDS ORDERED: NICOTINE POLACRILEX 4 MG GUM BUC PRN (15:56)
[2023-04-24] MEDS ORDERED: DICYCLOMINE HCL 10 MG CAPSULE PO PRN (15:56)
[2023-04-24] MEDS ORDERED: NALOXONE HCL (KLOXXADO) 8 MG SPRAY NS PRN (15:56)
[2023-04-24] MEDS ORDERED: BENZONATATE 200 MG CAPSULE PO PRN (15:56)
[2023-04-24] MEDS ORDERED: MAGNESIUM HYDROX 2400MG/30ML ORAL SUSPENSION 30 ML CUP PO PRN (15:56)
[2023-04-24] MEDS ORDERED: LORazepam 2 MG TABLET ONE (16:57)
[2023-04-24] MEDS ORDERED: hydrOXYzine PAMOATE 25 MG CAPSULE (FP) PO ONE (16:58)
[2023-04-24] MEDS ORDERED: DICYCLOMINE HCL 10 MG CAPSULE ONE (16:58)
[2023-04-24] MEDS: hydrOXYzine PAMOATE 25 MG CAPSULE (FP) PO PRN (17:03)
[2023-04-24] MEDS: LORazepam 2 MG TABLET PO SCH ×2 (17:03→22:08)
[2023-04-24] MEDS: PRENATAL VITAMINS W/ FOLIC ACID TABLET (FP) PO SCH (17:31)
[2023-04-24] MEDS: NICOTINE 21 MG/24 HOURS TOPICAL PATCH TD SCH (17:31)
[2023-04-24] MEDS: THIAMINE HCL 100 MG TABLET (FP) PO SCH (22:08)
[2023-04-24] MEDS: MELATONIN 5 MG TABLETS PO SCH (22:08)
[2023-04-25] MEDS: LORazepam 2 MG TABLET PO SCH ×4 (05:11→22:14)
[2023-04-25] MEDS: NICOTINE 21 MG/24 HOURS TOPICAL PATCH TD SCH (10:10)
[2023-04-25] MEDS: METHOCARBAMOL 500 MG TABLET PO PRN (10:11)
[2023-04-25] MEDS: hydrOXYzine PAMOATE 25 MG CAPSULE (FP) PO PRN ×2 (10:11→23:38)
[2023-04-25] MEDS: PRENATAL VITAMINS W/ FOLIC ACID TABLET (FP) PO SCH (10:11)
[2023-04-25 11:13] LABS: HEMATOCRIT 42.6 % (35.4-49); HEMOGLOBIN 13.2 GM/dL (11.7-16.9); MCH 24.9 pg (25.7-33.7); MEAN CELL VOLUME 80.3 fl (80-96); PLATELET COUNT 167 10^3/uL (134-434); RBC 5.31 M/mm3 (4.00-5.60); RDW 15.2 % (11.9-15.9); WHITE BLOOD COUNT 4.2 K/mm3 (4.0-10.0)
[2023-04-25 12:24] LABS: POTASSIUM 3.6 mmol/L (3.5-5.1)
[2023-04-25 12:41] LABS: ALBUMIN 3.7 g/dl (3.4-5.0); CALCIUM 9.1 mg/dL (8.5-10.1)
[2023-04-25 12:42] LABS: BLOOD UREA NITROGEN 9.7 mg/dL (7-18)
[2023-04-25 12:44] LABS: CREATININE 0.8 mg/dL (0.55-1.3)
[2023-04-25 12:45] LABS: BILIRUBIN,TOTAL 0.9 mg/dL (0.2-1); TOT PROT 7.5 g/dl (6.4-8.2)
[2023-04-25] MEDS: LACTULOSE 20 GM/30 ML UDC (FOR ORAL USE ONLY) PO SCH ×3 (14:00→22:15)
[2023-04-25] MEDS ORDERED: ALBUTEROL SO4 HFA INHALER IH PRN (14:18)
[2023-04-25] MEDS: MELATONIN 5 MG TABLETS PO SCH (22:14)
[2023-04-25] MEDS: THIAMINE HCL 100 MG TABLET (FP) PO SCH (22:14)
[2023-04-25] MEDS: ATORVASTATIN CA 10 MG TABLET (FP) PO SCH (22:15)
[2023-04-25] MEDS: BUDESONIDE/FORMETEROL FUMARATE 160/4.5 mcg INHALER IH SCH (22:15)
[2023-04-25] MEDS: CARVEDILOL 3.125 MG TABLET (FP) PO SCH (22:15)
[2023-04-26] MEDS: METHOCARBAMOL 500 MG TABLET PO PRN (00:47)
[2023-04-26] MEDS: LORazepam 1 MG TABLET PO SCH ×4 (04:11→22:12)
[2023-04-26] MEDS: ASPIRIN COATED 81 MG TABLET.EC PO SCH (09:40)
[2023-04-26] MEDS: LISINOPRIL 10 MG TABLET PO SCH (09:40)
[2023-04-26] MEDS: LACTULOSE 20 GM/30 ML UDC (FOR ORAL USE ONLY) PO SCH ×5 (09:40→22:12)
[2023-04-26] MEDS: CARVEDILOL 3.125 MG TABLET (FP) PO SCH ×2 (09:40→22:12)
[2023-04-26] MEDS: FAMOTIDINE 20 MG TABLET PO SCH ×2 (09:40→22:12)
[2023-04-26] MEDS: PRENATAL VITAMINS W/ FOLIC ACID TABLET (FP) PO SCH (09:40)
[2023-04-26] MEDS: NICOTINE 21 MG/24 HOURS TOPICAL PATCH TD SCH (09:42)
[2023-04-26] MEDS: BUDESONIDE/FORMETEROL FUMARATE 160/4.5 mcg INHALER IH SCH ×2 (09:45→22:14)
[2023-04-26] MEDS: ACAMPROSATE CALCIUM 333 MG TABLET.DR PO SCH ×2 (13:16→23:00)
[2023-04-26] MEDS: hydrOXYzine PAMOATE 25 MG CAPSULE (FP) PO PRN (19:46)
[2023-04-26] MEDS: ATORVASTATIN CA 10 MG TABLET (FP) PO SCH (22:12)
[2023-04-26] MEDS: THIAMINE HCL 100 MG TABLET (FP) PO SCH (22:12)
[2023-04-26] MEDS: SUVOREXANT 10 MG TABLET PO PRN (22:15)
[2023-04-27] MEDS ORDERED: LORazepam 0.5 MG TABLET PO PRN
[2023-04-27] MEDS: METHOCARBAMOL 500 MG TABLET PO PRN ×2 (00:59→10:54)
[2023-04-27] MEDS: hydrOXYzine PAMOATE 25 MG CAPSULE (FP) PO PRN ×3 (02:33→22:24)
[2023-04-27] MEDS: ACAMPROSATE CALCIUM 333 MG TABLET.DR PO SCH ×3 (05:11→22:20)
[2023-04-27] MEDS: LORazepam 0.5 MG TABLET PO SCH ×5 (05:11→22:21)
[2023-04-27] MEDS: PRENATAL VITAMINS W/ FOLIC ACID TABLET (FP) PO SCH (10:52)
[2023-04-27] MEDS: ASPIRIN COATED 81 MG TABLET.EC PO SCH (10:53)
[2023-04-27] MEDS: FAMOTIDINE 20 MG TABLET PO SCH ×2 (10:53→22:20)
[2023-04-27] MEDS: LISINOPRIL 10 MG TABLET PO SCH (10:53)
[2023-04-27] MEDS: LACTULOSE 20 GM/30 ML UDC (FOR ORAL USE ONLY) PO SCH ×4 (10:54→22:27)
[2023-04-27] MEDS: BUDESONIDE/FORMETEROL FUMARATE 160/4.5 mcg INHALER IH SCH ×2 (10:55→22:22)
[2023-04-27] MEDS: CARVEDILOL 3.125 MG TABLET (FP) PO SCH ×2 (10:55→22:20)
[2023-04-27] MEDS: NICOTINE 21 MG/24 HOURS TOPICAL PATCH TD SCH (10:55)
[2023-04-27 20:47] VITALS: RESP 16
[2023-04-27] MEDS: THIAMINE HCL 100 MG TABLET (FP) PO SCH (22:20)
[2023-04-27] MEDS: ATORVASTATIN CA 10 MG TABLET (FP) PO SCH (22:20)
[2023-04-27] MEDS: SUVOREXANT 10 MG TABLET PO PRN (22:24)
[2023-04-28] MEDS ORDERED: LORazepam 0.5 MG TABLET PO ONE (05:00)
[2023-04-28] MEDS: ACAMPROSATE CALCIUM 333 MG TABLET.DR PO SCH (06:23)
[2023-04-28 09:25] VITALS: BP 131/69; PULSE 72; TEMP 98.1
[2023-04-28] MEDS: LACTULOSE 20 GM/30 ML UDC (FOR ORAL USE ONLY) PO SCH (09:32)
[2023-04-28] MEDS: PRENATAL VITAMINS W/ FOLIC ACID TABLET (FP) PO SCH (09:32)
[2023-04-28] MEDS: ASPIRIN COATED 81 MG TABLET.EC PO SCH (09:32)
[2023-04-28] MEDS: hydrOXYzine PAMOATE 25 MG CAPSULE (FP) PO PRN (09:32)
[2023-04-28] MEDS: FAMOTIDINE 20 MG TABLET PO SCH (09:32)
[2023-04-28] MEDS: LISINOPRIL 10 MG TABLET PO SCH (09:32)
[2023-04-28] MEDS: CARVEDILOL 3.125 MG TABLET (FP) PO SCH (09:33)
[2023-04-28] MEDS: BUDESONIDE/FORMETEROL FUMARATE 160/4.5 mcg INHALER IH SCH (09:33)
[2023-04-28] MEDS: NICOTINE 21 MG/24 HOURS TOPICAL PATCH TD SCH (09:33)
== END 2023-04-28 10:45 | disposition home or self-care (01) | DRG 775 ==
LOC: YASAS 14:42 → Y6N 16:36
PROVIDERS: ADMIT Allergy & Immunology; ATTEND Surgery
PROC: HZ2ZZZZ Detoxification Services for Substance Abuse Treatment (ICD-10-PCS; principal; 2023-04-24)
DX: F10.230 Alcohol dependence with withdrawal, uncomplicated (principal); F12.20 Cannabis dependence, uncomplicated; F17.210 Nicotine dependence, cigarettes, uncomplicated; F10.282 Alcohol dependence with alcohol-induced sleep disorder; F10.280 Alcohol dependence with alcohol-induced anxiety disorder; F10.24 Alcohol dependence with alcohol-induced mood disorder; F43.10 Post-traumatic stress disorder, unspecified; E78.00 Pure hypercholesterolemia, unspecified; I10 Essential (primary) hypertension; I25.2 Old myocardial infarction; Z95.5 Presence of coronary angioplasty implant and graft; K21.9 Gastro-esophageal reflux disease without esophagitis; J43.1 Panlobular emphysema; R79.89 Other specified abnormal findings of blood chemistry; Z87.820 Personal history of traumatic brain injury; Z86.19 Personal history of other infectious and parasitic diseases; Z86.69 Personal history of other diseases of the nervous system and sense organs; Z59.01 Sheltered homelessness
CPT/HCPCS: 36415; 80053; 80307; 82140; 85027; 86780; 87635; 87811

== ENCOUNTER 2023-05-15 12:20 | Inpatient (IN) | payer OTHER ==
[2023-05-15 14:26] VITALS: BMI 20.3
[2023-05-15] MEDS ORDERED: ACETAMINOPHEN 325 MG TABLET (FP) PO PRN (15:09)
[2023-05-15] MEDS ORDERED: IBUPROFEN 600 MG TABLET (FP) PO PRN (15:09)
[2023-05-15] MEDS ORDERED: BENZONATATE 200 MG CAPSULE PO PRN (15:09)
[2023-05-15] MEDS ORDERED: BISMUTH SUBSALICYLATE 524 MG/30 ML PO PRN (15:09)
[2023-05-15] MEDS ORDERED: NALOXONE HCL (KLOXXADO) 8 MG SPRAY NS PRN (15:09)
[2023-05-15] MEDS ORDERED: IBUPROFEN 400 MG TABLET (FP) PO PRN (15:09)
[2023-05-15] MEDS ORDERED: LOPERAMIDE HCL 2 MG CAPSULE PO PRN (15:09)
[2023-05-15] MEDS ORDERED: DICYCLOMINE HCL 10 MG CAPSULE PO PRN (15:09)
[2023-05-15] MEDS ORDERED: POLYETHYLENE GLYCOL (HEALTHYLAX) 3350 17 GM PACKET PO PRN (15:09)
[2023-05-15] MEDS ORDERED: guaiFENesin 600 MG TABLET.ER (FP) PO PRN (15:09)
[2023-05-15] MEDS ORDERED: BENZOCAINE/MENTHOL (CHLORASEPTIC ) LOZENGE MM PRN (15:09)
[2023-05-15] MEDS ORDERED: NICOTINE POLACRILEX 2 MG GUM BUC PRN (15:09)
[2023-05-15] MEDS ORDERED: MAGNESIUM HYDROX 2400MG/30ML ORAL SUSPENSION 30 ML CUP PO PRN (15:09)
[2023-05-15] MEDS ORDERED: ONDANSETRON *ODT* 4 MG TABLET SL PRN (15:09)
[2023-05-15] MEDS ORDERED: MAG HYDROX/AL HYDROX/SIMETH 30 ML UNIT-DOSE CUP PO PRN (15:09)
[2023-05-15] MEDS ORDERED: NALOXONE HCL 0.4 MG/ML VIAL IM PRN (15:09)
[2023-05-15] MEDS ORDERED: chlordiazePOXIDE HCL 25 MG CAPSULE PO PRN (20:48)
[2023-05-15] MEDS ORDERED: chlordiazePOXIDE HCL 25 MG CAPSULE PO ONE (20:48)
[2023-05-15] MEDS: MELATONIN 5 MG TABLETS PO SCH (22:16)
[2023-05-15] MEDS: THIAMINE HCL 100 MG TABLET (FP) PO SCH (22:16)
[2023-05-15] MEDS: chlordiazePOXIDE HCL 25 MG CAPSULE PO SCH (22:17)
[2023-05-16] MEDS: chlordiazePOXIDE HCL 25 MG CAPSULE PO SCH ×4 (05:32→22:02)
[2023-05-16] MEDS: PRENATAL VITAMINS W/ FOLIC ACID TABLET (FP) PO SCH (10:11)
[2023-05-16] MEDS: NICOTINE 21 MG/24 HOURS TOPICAL PATCH TD SCH (10:12)
[2023-05-16 11:55] LABS: HEMATOCRIT 37.2 % (35.4-49); HEMOGLOBIN 12.1 GM/dL (11.7-16.9); MCH 25.7 pg (25.7-33.7); MCHC 32.4 g/dl (32.0-35.9); MEAN CELL VOLUME 79.4 fl (80-96); MEAN PLT VOLUME 10.5 fl (7.5-11.1); PLATELET COUNT 187 10^3/uL (134-434); RBC 4.69 M/mm3 (4.00-5.60); RDW 15.6 % (11.9-15.9); WHITE BLOOD COUNT 3.5 K/mm3 (4.0-10.0)
[2023-05-16 12:09] LABS: CHLORIDE 104 mmol/L (98-107); POTASSIUM 3.9 mmol/L (3.5-5.1); SODIUM 138 mmol/L (136-145)
[2023-05-16 12:12] LABS: ANION GAP 6 mmol/L (4-13); BLOOD UREA NITROGEN 10.3 mg/dL (7-18); CALCIUM 8.5 mg/dL (8.5-10.1); CO2 28 mmol/L (21-32); GLUCOSE,RANDOM 85 mg/dL (74-106)
[2023-05-16 12:13] LABS: ALBUMIN 3.3 g/dl (3.4-5.0)
[2023-05-16 12:14] LABS: SGPT/ALT 69 U/L (13-61)
[2023-05-16 12:16] LABS: BILIRUBIN,TOTAL 1.4 mg/dL (0.2-1); CREATININE 0.7 mg/dL (0.55-1.3); SGOT/AST 53 U/L (15-37)
[2023-05-16 12:17] LABS: TOT PROT 6.5 g/dl (6.4-8.2)
[2023-05-16 12:18] LABS: ALK PHOS 104 U/L (45-117)
[2023-05-16 13:08] LABS: HIV INTERPRETATION NEGATIVE (NEGATIVE)
[2023-05-16] MEDS ORDERED: ALBUTEROL SO4 HFA INHALER IH PRN (14:14)
[2023-05-16] MEDS: CARVEDILOL 3.125 MG TABLET (FP) PO SCH (22:02)
[2023-05-16] MEDS: OLANZapine 5 MG TABLET PO SCH (22:02)
[2023-05-16] MEDS: FAMOTIDINE 20 MG TABLET PO SCH (22:03)
[2023-05-16] MEDS: THIAMINE HCL 100 MG TABLET (FP) PO SCH (22:03)
[2023-05-16] MEDS: MELATONIN 5 MG TABLETS PO SCH (22:03)
[2023-05-16] MEDS: ACAMPROSATE CALCIUM 333 MG TABLET.DR PO SCH (22:03)
[2023-05-16] MEDS: ATORVASTATIN CA 10 MG TABLET (FP) PO SCH (22:03)
[2023-05-16] MEDS: BUDESONIDE/FORMETEROL FUMARATE 160/4.5 mcg INHALER IH SCH (22:03)
[2023-05-17] MEDS: chlordiazePOXIDE HCL 25 MG CAPSULE PO SCH ×4 (05:58→22:10)
[2023-05-17] MEDS: ACAMPROSATE CALCIUM 333 MG TABLET.DR PO SCH ×3 (05:59→22:11)
[2023-05-17] MEDS: PRENATAL VITAMINS W/ FOLIC ACID TABLET (FP) PO SCH (10:14)
[2023-05-17] MEDS: CARVEDILOL 3.125 MG TABLET (FP) PO SCH ×2 (10:14→22:10)
[2023-05-17] MEDS: ASPIRIN COATED 81 MG TABLET.EC PO SCH (10:14)
[2023-05-17] MEDS: FAMOTIDINE 20 MG TABLET PO SCH ×2 (10:14→22:10)
[2023-05-17] MEDS: LISINOPRIL 10 MG TABLET PO SCH (10:14)
[2023-05-17] MEDS: FLUoxetine HCL 10 MG CAPSULE PO SCH (10:15)
[2023-05-17] MEDS: NICOTINE 21 MG/24 HOURS TOPICAL PATCH TD SCH (10:16)
[2023-05-17] MEDS: BUDESONIDE/FORMETEROL FUMARATE 160/4.5 mcg INHALER IH SCH ×2 (10:17→22:11)
[2023-05-17] MEDS: ATORVASTATIN CA 10 MG TABLET (FP) PO SCH (22:10)
[2023-05-17] MEDS: MELATONIN 5 MG TABLETS PO SCH (22:11)
[2023-05-17] MEDS: THIAMINE HCL 100 MG TABLET (FP) PO SCH (22:11)
[2023-05-17] MEDS: OLANZapine 5 MG TABLET PO SCH (22:11)
[2023-05-18] MEDS ORDERED: chlordiazePOXIDE HCL 10 MG CAPSULE PO PRN
[2023-05-18] MEDS: ACAMPROSATE CALCIUM 333 MG TABLET.DR PO SCH ×3 (05:30→22:14)
[2023-05-18] MEDS: chlordiazePOXIDE HCL 10 MG CAPSULE PO SCH ×4 (05:30→22:14)
[2023-05-18] MEDS: CARVEDILOL 3.125 MG TABLET (FP) PO SCH ×2 (10:24→22:14)
[2023-05-18] MEDS: BUDESONIDE/FORMETEROL FUMARATE 160/4.5 mcg INHALER IH SCH ×2 (10:24→22:18)
[2023-05-18] MEDS: PRENATAL VITAMINS W/ FOLIC ACID TABLET (FP) PO SCH (10:25)
[2023-05-18] MEDS: ASPIRIN COATED 81 MG TABLET.EC PO SCH (10:25)
[2023-05-18] MEDS: FAMOTIDINE 20 MG TABLET PO SCH ×2 (10:25→22:14)
[2023-05-18] MEDS: NICOTINE 21 MG/24 HOURS TOPICAL PATCH TD SCH (10:25)
[2023-05-18] MEDS: LISINOPRIL 10 MG TABLET PO SCH (10:25)
[2023-05-18] MEDS: FLUoxetine HCL 10 MG CAPSULE PO SCH (10:33)
[2023-05-18] MEDS ORDERED: hydrOXYzine PAMOATE 25 MG CAPSULE (FP) PO PRN (14:54)
[2023-05-18] MEDS: OLANZapine 5 MG TABLET PO SCH (22:14)
[2023-05-18] MEDS: THIAMINE HCL 100 MG TABLET (FP) PO SCH (22:14)
[2023-05-18] MEDS: MELATONIN 5 MG TABLETS PO SCH (22:14)
[2023-05-18] MEDS: ATORVASTATIN CA 10 MG TABLET (FP) PO SCH (22:14)
[2023-05-19] MEDS ORDERED: chlordiazePOXIDE HCL 10 MG CAPSULE PO SCH (05:00)
[2023-05-19] MEDS: ACAMPROSATE CALCIUM 333 MG TABLET.DR PO SCH ×2 (05:42→13:30)
[2023-05-19] MEDS: BUDESONIDE/FORMETEROL FUMARATE 160/4.5 mcg INHALER IH SCH (10:28)
[2023-05-19] MEDS: FLUoxetine HCL 10 MG CAPSULE PO SCH (10:29)
[2023-05-19] MEDS: FAMOTIDINE 20 MG TABLET PO SCH (10:29)
[2023-05-19] MEDS: PRENATAL VITAMINS W/ FOLIC ACID TABLET (FP) PO SCH (10:29)
[2023-05-19] MEDS: CARVEDILOL 3.125 MG TABLET (FP) PO SCH (10:29)
[2023-05-19] MEDS: ASPIRIN COATED 81 MG TABLET.EC PO SCH (10:29)
[2023-05-19] MEDS: NICOTINE 21 MG/24 HOURS TOPICAL PATCH TD SCH (10:30)
[2023-05-19] MEDS: LISINOPRIL 10 MG TABLET PO SCH (10:30)
[2023-05-19 13:37] VITALS: BP 149/92; PULSE 80; RESP 18; TEMP 97.8
[2023-05-20] MEDS ORDERED: chlordiazePOXIDE HCL 10 MG CAPSULE PO ONE (05:00)
== END 2023-05-19 14:24 | disposition home or self-care (01) | DRG 775 ==
LOC: YASAS 12:20 → Y3N 16:58
PROVIDERS: ADMIT Allergy & Immunology; ATTEND Surgery
PROC: HZ2ZZZZ Detoxification Services for Substance Abuse Treatment (ICD-10-PCS; principal; 2023-05-15)
DX: F10.230 Alcohol dependence with withdrawal, uncomplicated (principal); F17.210 Nicotine dependence, cigarettes, uncomplicated; F43.10 Post-traumatic stress disorder, unspecified; G47.00 Insomnia, unspecified; E78.00 Pure hypercholesterolemia, unspecified; I10 Essential (primary) hypertension; J43.1 Panlobular emphysema; K21.9 Gastro-esophageal reflux disease without esophagitis; I25.2 Old myocardial infarction; Z95.5 Presence of coronary angioplasty implant and graft; Z59.00 Homelessness unspecified; Z56.0 Unemployment, unspecified; Z86.19 Personal history of other infectious and parasitic diseases; Z87.820 Personal history of traumatic brain injury
CPT/HCPCS: 36415; 80053; 80307; 85027; 86780; 87389; 87635; 87811